=== PATIENT | female | born 1985 | race Caucasian/White ===

== ENCOUNTER 2018-03-13 22:30 | Inpatient (IN) ==
[2018-03-13 23:37] LABS: BASO# 0.02 X1000 (0.0-0.2); BASO% 0.2 % (0.0-0.8); EOS# 0.18 X1000 (0.0-0.7); EOS% 1.5 % (0.0-10.0); HEMATOCRIT 35.1 % (37.0-47.0); HEMOGLOBIN 10.9 g/dL (12.0-16.0); LYMPH# 2.76 X1000 (1.2-3.4); LYMPH% 22.5 % (20.5-51.1); MCH 26.2 PG (27-31); MCHC 31.1 g/dL (33-37); MCV 84.4 FL (81-99); MONO# 0.93 X1000 (0.11-0.59); MONO% 7.6 % (1.7-9.3); MPV 9.7 FL (7.4-10.4); NEUT# 8.37 X1000 (1.4-6.5); NEUT% 68.2 % (42.2-75.2); PLT 555 X1000 (130-400); RBC 4.16 XMIL (4.2-5.4); RDW 15.5 % (11.5-14.5); WBC 12.26 X1000 (4.8-10.8)
[2018-03-13 23:46] LABS: AGAP 18; ALB/GLOB RATIO 0.7; ALBUMIN 3.5 g/dL (3.5-5.0); ALKALINE PHOSPHATASE 103 U/L (32-104); AMYLASE 21 U/L (20-200); BUN 3 mg/dL (8-22); CALCIUM 8.9 mg/dL (8.8-10.2); CHLORIDE 97 mmol/L (98-107); COSMO 274; CREATININE 0.6 mg/dL (0.5-0.9); ESTIMATED GFR > 60; GLUCOSE 105 mg/dL (70-104); GOT 16 U/L (10-30); GPT 7 U/L (10-36); LIPASE 17 U/L (13-60); SODIUM 139 mmol/L (136-145); TCO2 24 mmol/L (25-35); TOTAL BILIRUBIN 0.39 mg/dL (0.20-1.00); TOTAL PROTEIN 8.4 g/dL (6.3-8.3)
[2018-03-13] MEDS ORDERED: KLOR-CON PO ONE (23:58)
[2018-03-13] MEDS ORDERED: MAGNESIUM SULFATE 1 GM/D5W 1 GM/100 ML IVPB IV ONE (23:58)
[2018-03-13] MEDS ORDERED: NS 1,000 ML IV ONE (23:58)
[2018-03-13] MEDS ORDERED: ZOFRAN IV ONE (23:59)
[2018-03-13] MEDS ORDERED: MORPHINE IV ONE (23:59)
[2018-03-14] MEDS ORDERED: ZOSYN 3.375 GM in NS 50 ML IV ONE (02:06)
--- NOTE | 2018-03-14 02:08 | PROVIDER DOCUMENTATION ---
This chart was entered by Ebony Rios Scribe, acting as scribe for Loli Garcia DO. HPI-Abdominal Pain/GI Problem - General Chief Complaint: Abdominal Pain Stated Complaint: CROHN'S DISEASE Time Seen by Provider: 03/13/18 22:53 Source: patient Allergies/Adverse Reactions: Patient Allergies Allergy/AdvReac Type Severity Reaction Status Date / Time Sulfa (Sulfonamide Allergy Severe ANAPHYLAXIS Verified 12/16/17 00:28 Antibiotics) Iodinated Contrast- Oral and Allergy Unknown Unknown Verified 12/16/17 00:28 IV Dye Home Medications: Home Medication List Medication Instructions Recorded Confirmed Last Taken Type Dextroamphetamine/Amphetamine 20 mg PO BID 03/03/17 03/14/18 3 Weeks Ago History [Adderall 20 mg Tablet] ~11/25/17 Calcium Carbonate [Caltrate 600] 600 mg PO BID 30 Days #60 tab 12/21/17 Unknown Rx Cyanocobalamin (Vitamin B-12) 1,000 mcg IJ Q7D 30 Days #4 vial 12/21/1703/11/18 09:00 Rx [Cyanocobalamin Injection] Ergocalciferol (Vitamin D2) 50,000 unit PO Q7D 60 Days #8 cap 12/21/17 03/14/18 03/11/18 09:00 Rx [Vitamin D] Hydrocodone/Acetaminophen [Elliott 1 ea PO Q4-6H PRN PRN 20 Days #40 12/21/1705/01 Unknown Rx 7.5-325 Tablet] tab Iron Carbonyl/Ascorbic Acid 1 ea PO BID 30 Days #60 tab 12/21/17 03/14/18 Unknown Rx [Icar-C] Multivitamins/Minerals [Centrum 1 ea PO HS 30 Days #30 tab 12/21/17 03/14/18 Unknown Rx Silver] Potassium Chloride E.r. [Klor-Con] 40 meq PO BID 30 Days #60 tab 12/21/17 Unknown Rx Sennosides/Docusate Sodium 1 ea PO BID 30 Days #60 tab 12/21/17 03/14/18 Unknown Rx [Pericolace] Folic Acid 1 mg PO DAILY 03/14/18 03/14/18 Unknown History - History of Present Illness-ABD Nature of Presenting Problems: 32yof with hx of crohn's disease c/o RUQ abdominal pain that radiates to RLQ and suprapubic area for one week and fever since yesterday. She denies fever, chills, nausea, vomiting, diarrhea, cp, and sob. Abdominal Pain Onset Location: reports: RUQ Pain Radiation: reports: RLQ, other (suprapubic) Quality of Pain: reports: aching, sharp Severity in ED: reports: mild Onset/Duration: reports: 1 week ago Timing: reports: still present, intermittent Activities at Onset: reports: none Modifying Factors: improves with: nothing Associated Symptoms: denies: chest pain, fever/chills, nausea, shortness of breath, vomiting Similar Symptoms Previously?: No Recently seen or treated by another doctor?: No Review of Systems - Adult - REVIEW OF SYSTEMS - ADULT Constitutional: reports: fever. denies: chills Eyes: denies: discharge, dry eyes Ears, Nose, Mouth & Throat: denies: ear discharge, ear pain Cardiovascular: denies: chest pain, palpitations Respiratory: denies: cough, shortness of breath Gastrointestinal: reports: abdominal pain (RUQ). denies: diarrhea, nausea, vomiting Genitourinary: denies: dysuria, hematuria Musculoskeletal: denies: back pain, muscle aches, muscle weakness Integumentary: reports: no symptoms reported Neurological: denies: dizziness/vertigo, headache/migraines Psychiatric: reports: no symptoms reported Endocrine: reports: no symptoms reported Hematologic/Lymphatic: reports: no symptoms reported Allergic/Immunologic: reports: no symptoms reported All Other Systems: Reviewed and Negative Past History - Adult - PAST MEDICAL HISTORY-ADULT Review of Records: reports: Old Records Reviewed, Nursing Assessment Review, Medications Reviewed Major Childhood Illnesses: reports: denies history Cardiovascular: reports: denies history Respiratory: reports: denies history Gastrointestinal: reports: Crohn's Obstetrical/Gynecological: reports: denies history Genitourinary: reports: denies history Musculoskeletal: reports: denies history Neurological: reports: denies history Endocrine/Immune: reports: denies history Other Conditions: reports: denies history - PRIOR SURGERIES/PROCEDURES Surgical/Procedure History: reports: appendectomy, cholecystectomy, - IMMUNIZATION STATUS Childhood Immunizations: See Nurse Assessment Flu Vaccine: See Nurse Assessment - FAMILY HISTORY Family History: reviewed, not pertinent - SOCIAL HISTORY Smoking: cigarettes, greater than 1 pack/day Substance Use: denies Living Situation: family Physical Exam-General - PHYSICAL EXAM-ADULT Initial Vital Signs Reviewed: Yes - CONSTITUTIONAL General Appearance: alert, no apparent distress - EYES Eyes: PERRL/EOMI, pink conjunctivae - HEAD, EARS, NOSE, MOUTH & THROAT HENMT: normocephalic/atraumatic, moist mucous membranes, normal ENT inspection, pharynx normal - NECK Neck: non-tender, supple - RESPIRATORY Respiratory: chest non-tender, lungs clear, normal breath sounds - CARDIOVASCULAR Cardiovascular: normal peripheral pulses, regular rate, rhythm, no edema, no murmur, tachycardia - GASTROINTESTINAL (ABDOMEN) Abdominal Exam: distended (mild), tenderness (RUQ most intense, RLQ), other ( hypoactive bowel sounds) - LYMPHATIC Lymphatic: no adenopathy - MUSCULOSKELETAL Back Exam: normal inspection, no CVA tenderness, no vertebral tenderness Extremity: normal range of motion, non-tender, normal inspection, no pedal edema - SKIN Integumentary: normal color, warm/dry - NEUROLOGIC Neurologic: grossly normal, no motor/sensory deficits - PSYCHIATRIC Psych/Mental Status: normal mood/affect, normal thought content, normal thought process, oriented x 3 Progress - PLAN OF CARE/RESULTS Progress/Plan/Lab Results: Vital Signs - 8 hr 03/13/18 22:40 Temperature 98.9 F Pulse Rate 102 H Respiratory Rate 18 Blood Pressure 122/77 O2 Sat by Pulse Oximetry 100 Laboratory Results - last 24 hr 03/13/18 03/13/18 03/13/18 23:20 23:20 23:20 WBC 12.26 H RBC 4.16 L Hgb 10.9 L Hct 35.1 L MCV 84.4 MCH 26.2 L MCHC 31.1 L RDW Std Deviation 15.5 H Plt Count 555 H MPV 9.7 Neut % (Auto) 68.2 Lymph % (Auto) 22.5 [place] % (Auto) 7.6 Eos % (Auto) 1.5 Baso % (Auto) 0.2 Neut # (Auto) 8.37 H Lymph # (Auto) 2.76 [facility] [place] # (Auto) 0.93 H Eos # (Auto) 0.18 Baso # (Auto) 0.02 Sodium 139 Potassium 3.0 L Chloride 97 L Carbon Dioxide 24 L Anion Gap 18 BUN 3 L Creatinine 0.6 Estimated GFR/1.73 m2 > 60 BUN/Creatinine Ratio 5 Glucose 105 H Calculated Osmolality 274 Calcium 8.9 Total Bilirubin 0.39 AST 16 ALT 7 L Alkaline Phosphatase 103 C-Reactive Prot, Quant 137.52 H Total Protein 8.4 H Albumin 3.5 Globulin 4.9 Albumin/Globulin Ratio 0.7 Amylase 21 Lipase 17 Urine Source Urine Color Urine Clarity Urine Turbidity Urine pH Ur Specific [place] Urine Protein Ur Glucose (Stick) Urine Ketones Ur Ketones (Stick) Urine Blood Urine Nitrite Urine Bilirubin Urine Urobilinogen Urobilinogen Dipstick Urine Leukocytes Urine WBC (Auto) Urine RBC (Auto) U Epithel Cells (Auto) Urine Bacteria (Auto) Urine WBC Urine Glucose 03/13/18 03/14/18 23:35 23:35 WBC RBC Hgb Hct MCV MCH MCHC RDW Std Deviation Plt Count MPV Neut % (Auto) Lymph % (Auto) [facility] % (Auto) Eos % (Auto) Baso % (Auto) Neut # (Auto) Lymph # (Auto) [facility] # (Auto) Eos # (Auto) Baso # (Auto) Sodium Potassium Chloride Carbon Dioxide Anion Gap BUN Creatinine Estimated GFR/1.73 m2 BUN/Creatinine Ratio Glucose Calculated Osmolality Calcium Total Bilirubin AST ALT Alkaline Phosphatase C-Reactive Prot, Quant Total Protein Albumin Globulin Albumin/Globulin Ratio Amylase Lipase Urine Source Cancelled Urine Color Cancelled YELLOW Urine Clarity CLEAR Urine Turbidity Cancelled Urine pH Cancelled 6.0 Ur Specific [place] Cancelled >= 1.030 Urine Protein Cancelled 30 A Ur Glucose (Stick) Cancelled Urine Ketones TRACE A Ur Ketones (Stick) Cancelled Urine Blood Cancelled NEGATIVE Urine Nitrite Cancelled POSITIVE A Urine Bilirubin Cancelled SMALL A Urine Urobilinogen 0.2 Urobilinogen Dipstick Cancelled Urine Leukocytes Cancelled Urine WBC (Auto) Cancelled Urine RBC (Auto) Cancelled U Epithel Cells (Auto) Cancelled Urine Bacteria (Auto) Cancelled Urine WBC NEGATIVE Urine Glucose NEGATIVE Orders Category Date Time Status Saline Loc DIRECTED Care 03/13/18 22:44 Active NPO Diet 03/13/18 22:[address] ABDOMEN/PELVIS W/O CONTRAST [CT] Stat Exams 03/13/18 23:59 Taken AMYLASE [CHEM] Stat Lab 03/13/18 23:20 Completed BLOOD CULTURE [BLDCUL] Stat Lab 03/14/18 00:21 Uncollected C REACTIVE PROT QUANT [CHEM] Stat Lab 03/14/18 00:06 Completed CBC WITH ELECTRONIC DIFF [HEME] Stat Lab 03/13/18 23:20 Completed COMPREHENSIVE METABOLIC PANEL [CHEM] Stat Lab 03/13/18 23:20 Completed LACTATE, PLASMA [CHEM] Stat Lab 03/14/18 00:21 Uncollected LIPASE [CHEM] Stat Lab 03/13/18 23:20 Completed URINE CULTURE [RM] Routine Lab 03/14/18 00:07 Received 0.9% Sodium Chloride Inj [Ns] 1,000 ml Med 03/13/18 23:58 Discontinued IV 999 mls/hr Magnesium Sulfate 1 gm/D5w Med 03/13/18 23:58 Discontinued 1 gm in 100 ml IV NOW Morphine Med 03/13/18 23:59 Discontinued 4 mg IV NOW ONE Ondansetron [Zofran] Med 03/13/18 23:59 Discontinued 4 mg IV NOW ONE Potassium Chloride E.r. [Klor-Con] Med 03/13/18 23:58 Discontinued 60 meq PO NOW ONE Clinically stable while here. CT reveals a fluid collection in RUQ that may reflect early abscess. There are multiple findings consistent with Crohns flare. Also PSBO vs Ileus. CRP is 135. Given ABX and admitted to hospitalist service Result Diagrams: 03/14/18 02:55 03/14/18 12:20 - CT/MRI 1 CT Study: Abdomen, Pelvis Impression: Abnormal (There are postoperative changes in the right midabdomen which appears to be anastomosis between the large and small bowel. There are inflammaatory changes surrounding the operative site with thickening of the colonic wall and adjacent small bowel wall. There is a new fluid collection between the colon and the liver which may represent a seroma or developing abscess. The small bowel is upper limits of normal in size and demonstrates multiple air-fluid levels. This may represent either a developing obstruction or small bowel ileus. The colon is not distended but also demonstrates multiple air-fluid levels, which could indicate a colonic ileus as well.) Departure - Departure Date of Disposition Decision: 03/14/18 Time of Disposition Decision: 02:00 DIAGNOSIS: Crohn's colitis Qualifiers: Digestive disease complication type: with abscess Qualified Code(s): K50.114 - Crohn's disease of large intestine with abscess Disposition: ADMITTED INPATIENT 09 Certified Medical Emergency: Emergent Condition: Stable - Critical Care Note This patient required my direct & personal management of CC.: No Attestation - Physician/ GERARDO Attestation Patient care was provided by Advanced Practice Provider:: No The physician spent face to face time with patient:: Yes Advanced Practice Provider documentation review:: Supervising physician onsite and consulted in the evaluation and care of this patient. The physician did have a face to face encounter with the patient. This chart was documented by the indicated scribe, (Ebony Rios, Shamir) and accurately reflects the services I performed and decisions made by me, Loli Garcia DO, as attested by the provider's signature.
[2018-03-14] MEDS ORDERED: TYLENOL PO PRN (02:20)
[2018-03-14] MEDS ORDERED: MORPHINE IV ONE (02:23)
[2018-03-14] MEDS ORDERED: SODIUM CHLORIDE 0.9% INJ SCH (02:30)
[2018-03-14 03:01] LABS: BASO# 0.02 X1000 (0.0-0.2); BASO% 0.2 % (0.0-0.8); EOS# 0.16 X1000 (0.0-0.7); EOS% 1.3 % (0.0-10.0); HEMATOCRIT 33.4 % (37.0-47.0); HEMOGLOBIN 10.2 g/dL (12.0-16.0); IMM GRAN# 0.04 X1000 (0.0-0.04); IMM GRAN% 0.3 % (0.0-0.5); LYMPH% 26.2 % (20.5-51.1); MCHC 30.5 g/dL (33-37); MONO# 0.78 X1000 (0.11-0.59); MONO% 6.4 % (1.7-9.3); MPV 9.5 FL (7.4-10.4); NEUT# 8.02 X1000 (1.4-6.5); NEUT% 65.6 % (42.2-75.2); PLT 525 X1000 (130-400); RBC 3.93 XMIL (4.2-5.4); RDW 15.5 % (11.5-14.5); WBC 12.22 X1000 (4.8-10.8)
--- NOTE | 2018-03-14 03:20 | HISTORY AND PHYSICAL ---
CHIEF COMPLAINT: Abdominal pain, nausea, and vomiting. HISTORY OF PRESENT ILLNESS: This is a 32-year-old, female with a past medical history of Crohn's disease diagnosed at the age of 10. Recently discharged for a Crohn's flare on 12/21/2017. Presented to the emergency department with a chief complaint of abdominal pain which has been going on for one and a half weeks, associated with nausea and vomiting. As per the patient, the pain is generalized but mostly located on the right side and periumbilical area. She denies fever or chills. No headache. No chest pain. This patient will be admitted and evaluated by the gastroenterology department. She will be placed on steroids, antibiotics, and IV fluids. We will monitor this patient closely. REVIEW OF SYSTEMS: All the 14 point of review of systems were reviewed. All of them were negative except as per HPI. PAST MEDICAL HISTORY: 1. Crohn's disease. 2. Ileal stricture. 3. History of electrolyte abnormality. 4. History of multiple vitamin deficiencies. 5. Recent small bowel obstruction that required surgery. 6. History of abnormal uterine bleeding, status post endometrial ablation followed by hysterectomy. PAST SURGICAL HISTORY: Cholecystectomy, section, hysterectomy, surgery on 06/27/2017, exploratory laparotomy with ileocecal resection and ileal colostomy due to recurrent Crohn's and stricture. SOCIAL HISTORY: This patient smokes 1 pack a day. No drugs. No alcohol. ALLERGIES: She is allergic to sulfa medicine, IV dye, and iodine. PHYSICAL EXAMINATION: VITAL SIGNS: Temperature 98.9 degrees, pulse 102, respiratory rate 18, blood pressure 122/77, oxygen saturation 100% on room air. HEENT: Head normocephalic. No trauma. PERRLA. NECK: Supple. No JVD. No masses. Central trachea. CHEST: Clear to auscultation. No wheezing. No rales. ABDOMEN: Soft. Generalized tenderness to palpation but mostly at the level of the right side of the abdomen and periumbilical area. Positive bowel sounds but decreased. No signs of peritoneal irritation at this moment. EXTREMITIES: No edema. No clubbing. No cyanosis. NEUROLOGICAL EXAMINATION: The patient is alert and oriented x3. No focal deficits. LABORATORY DATA: WBC 12.2, hemoglobin 10.9, hematocrit 35.1, platelets 555,000. Sodium 139, potassium 3, chloride 97, bicarbonate 24, BUN 3, creatinine 0.6, glucose 105. CRP 137. Albumin 3.5. ASSESSMENT AND PLAN: 1. Crohn's flare. I will place this patient on intravenous fluids with potassium. Also, she will be placed on steroids and antibiotics. Gastroenterology department will be consulted. 2. Hypokalemia. I think she already received a dose of potassium in the emergency department but I will give her also some potassium through her intravenous line. 3. Leukocytosis, likely secondary to her inflammatory condition. At this point, we will continue with the same management. cc: Asael Santos MD
[2018-03-14 03:22] LABS: AGAP 16; ALB/GLOB RATIO 0.7; ALBUMIN 3.1 g/dL (3.5-5.0); ALKALINE PHOSPHATASE 98 U/L (32-104); BUN 3 mg/dL (8-22); CALCIUM 8.2 mg/dL (8.8-10.2); CHLORIDE 99 mmol/L (98-107); COSMO 276; CREATININE 0.5 mg/dL (0.5-0.9); ESTIMATED GFR > 60; GLUCOSE 97 mg/dL (70-104); GOT 10 U/L (10-30); GPT 5 U/L (10-36); MAGNESIUM 2.4 mg/dL (1.5-2.7); POTASSIUM 2.7 mmol/L (3.5-5.1); SODIUM 140 mmol/L (136-145); TCO2 25 mmol/L (25-35); TOTAL BILIRUBIN 0.37 mg/dL (0.20-1.00); TOTAL PROTEIN 7.7 g/dL (6.3-8.3)
[2018-03-14] MEDS: ZOSYN 3.375 GM in NS 50 ML IV SCH ×4 (03:25→20:28)
[2018-03-14] MEDS: PROTONIX IV SCH (03:53)
[2018-03-14] MEDS: SOLU-MEDROL IV SCH ×4 (03:53→20:29)
[2018-03-14] MEDS: POTASSIUM CHLORIDE 40 MEQ in NS 1,000 ML IV SCH ×2 (04:44→18:42)
--- NOTE | 2018-03-14 06:16 | Diag Imaging Result Doc PS360 ---
EXAM: CT ABDOMEN/PELVIS W/O CONTRAST HISTORY: ABD PAIN, HISTORY OF CROHNS. TECHNIQUE: CT abdomen and pelvis without contrast COMPARISON: 12/15/2017 FINDINGS: The gallbladder has been removed. The liver is prominent. No focal hepatic normality identified on this noncontrasted exam. Normal spleen, pancreas, and right adrenal gland. There is a 4.1 cm left adrenal nodule unchanged the prior study. No renal stones or hydronephrosis. Normal aorta. Trace fluid about the tip of the liver. The proximal right colon has been resected. There is inflammation in the right lower quadrant with fluid adjacent to the anastomotic site. There is stool throughout the colon. Small bowel loops in the left abdomen are dilated. The uterus has been removed. Urinary bladder is distended. No pelvic mass. There are sutures in the sigmoid colon. Lower anterior abdominal wall hernias containing fat similar to the prior study. There is a small amount of fluid within these on the current study. IMPRESSION: 1.There is at least a partial small bowel obstruction 2.Inflammation at the anastomotic site of the small bowel and colon in the right lower quadrant with a small amount of adjacent fluid, but no definite abscess. 3.Cholecystectomy 4.Stable left adrenal nodule 5.Prominent liver 6.Hysterectomy 7.Anterior abdominal wall hernias 8.A preliminary report was given at 118 This exam was performed using automated exposure control, adjustment of mA or kV according to patient size, and/or use of iterative reconstruction technique. Electronically signed by Cleveland Cruz 03/14/2018 6:14 AM
[2018-03-14] MEDS: MORPHINE IV PRN ×4 (07:34→20:18)
--- NOTE | 2018-03-14 07:42 | Diag Imaging Result Doc PS360 ---
EXAM: KUB ABDOMEN 03/14/2018 HISTORY: Abdominal pain TECHNIQUE: KUB COMMENT: There is some gas in the transverse and ascending colon. There are multiple loops of distended gas containing small bowel on the left side of the abdomen. This was not the case on 12/18/2017. There is no evidence organomegaly or mass. IMPRESSION: Ileus. Electronically signed by Abner Valle 03/14/2018 7:39 AM
--- NOTE | 2018-03-14 12:25 | PROGRESS NOTE ---
DATE: 03/14/2018 SUBJECTIVE: The patient came in yesterday. She is followed by Dr. Bianca Velasco. Had abdominal pain, nausea, and vomiting. A 32-year-old with past medical history of Crohn disease diagnosed at age 10, was recently discharged after a Crohn's flare on 12/21/2017, presented to the emergency department with chief complaint of abdominal pain, which has been going on for 1-1/2 weeks. She has had generalized pain, but more prominent on the right side of the umbilical area. Denies fever or chills. She has had some low-grade nausea. So was admitted, placed on steroids and antibiotics. REVIEW AGAIN OF PAST MEDICAL HISTORY: 1. Crohn disease. 2. Ileal stricture. 3. History of electrolyte abnormalities. 4. History of multiple vitamin deficiencies. 5. Small bowel obstruction that required surgery in the past. 6. Abdominal uterine bleeding status post endometrial ablation, followed by hysterectomy. PAST SURGICAL HISTORY: 1. Status post cholecystectomy. 2. section. 3. Hysterectomy. 4. Surgery on 06/27/2017 for exploratory laparotomy with ileocecal resection and ileocolostomy due to recurrent Crohn's stricture. Her abdominal and pelvic CT: At least, partial small bowel obstruction, inflammation of anastomotic site, small bowel and colon, the right lower quadrant, with a small amount of adjacent fluid, but no definite abscess. 5. She is status post cholecystectomy. 6. She has a stable left adrenal nodule noted, prominent liver. 7. Status post hysterectomy, and she had some anterior abdominal wall hernias. OBJECTIVE: General: Today, she is still hurting, uncomfortable. She is awake and alert x3. Vital signs: Temperature 98.3, pulse 63, respirations 20, blood pressure 117/62. Eyes: Pupils are equal. Neck: No distended neck veins. Lungs: Clear anterolateral. Cardiovascular: Regular rhythm and rate without murmur or S3. Abdomen: Soft. Skin: Warm and dry. LAB REVIEWED FROM YESTERDAY: White count 12,220, hematocrit is 33, platelet count 525,000. Sodium 140, potassium 2.5, chloride 99, BUN 3, creatinine 0.5. AST 10. ALT was 5. Albumin was 3.1. Urine: Unremarkable. Abdominal x-ray showed ileus. ASSESSMENT AND PLAN: 1. Crohn's flare. Continue intravenous fluids. Supplement potassium. Placed her on steroids and some antibiotics. She is on methylprednisone 40 mg IV q.6. She is on Protonix 40 mg intravenous q.24 hours. She is on Zosyn, and she gets 3.375 gram IV q.6. They gave her 1 gram of magnesium sulfate, and they have given her some potassium. 2. Depression and anxiety. She is on her Pristiq [address] Washington is consulted. Will see how he wants to continue from here. cc: Keagan Hester MD
[2018-03-14 13:14] LABS: AGAP 11; BUN 4 mg/dL (8-22); CALCIUM 8.3 mg/dL (8.8-10.2); CHLORIDE 100 mmol/L (98-107); COSMO 271; CREATININE 0.5 mg/dL (0.5-0.9); ESTIMATED GFR > 60; GLUCOSE 131 mg/dL (70-104); MAGNESIUM 2.5 mg/dL (1.5-2.7); POTASSIUM 3.7 mmol/L (3.5-5.1); SODIUM 136 mmol/L (136-145); TCO2 25 mmol/L (25-35)
[2018-03-14] MEDS: ZOFRAN IV PRN (20:17)
[2018-03-14] MEDS: PRISTIQ ER PO SCH (20:26)
[2018-03-15] MEDS: MORPHINE IV PRN ×6 (01:06→22:52)
[2018-03-15] MEDS: ZOFRAN IV PRN ×6 (01:06→22:52)
[2018-03-15] MEDS: PROTONIX IV SCH (02:57)
[2018-03-15] MEDS: SOLU-MEDROL IV SCH ×4 (02:57→22:57)
[2018-03-15] MEDS: ZOSYN 3.375 GM in NS 50 ML IV SCH ×4 (02:58→22:58)
[2018-03-15 07:40] LABS: AGAP 11; ALB/GLOB RATIO 0.6; ALKALINE PHOSPHATASE 74 U/L (32-104); BUN 6 mg/dL (8-22); CALCIUM 8.9 mg/dL (8.8-10.2); CHLORIDE 104 mmol/L (98-107); COSMO 280; CREATININE 0.6 mg/dL (0.5-0.9); ESTIMATED GFR > 60; GLUCOSE 124 mg/dL (70-104); GOT 9 U/L (10-30); GPT 5 U/L (10-36); POTASSIUM 3.7 mmol/L (3.5-5.1); SODIUM 141 mmol/L (136-145); TCO2 26 mmol/L (25-35); TOTAL BILIRUBIN 0.31 mg/dL (0.20-1.00); TOTAL PROTEIN 7.8 g/dL (6.3-8.3)
[2018-03-15 07:48] LABS: FREE T4 1.25 ng/dL (0.93-1.70); TSH 0.25 uIUmL (0.27-4.20)
[2018-03-15] MEDS: POTASSIUM CHLORIDE 40 MEQ in NS 1,000 ML IV SCH (09:03)
[2018-03-15] MEDS ORDERED: VITAMIN D PO SCH (11:00)
--- NOTE | 2018-03-15 11:12 | CONSULTATION ---
DATE OF CONSULTATION: 03/15/2018 REFERRING PHYSICIAN: Dr. Keagan Hester. PRIMARY CARE PHYSICIAN: Dr. Bianca Velasco. REASON FOR CONSULTATION: Crohn disease. HISTORY OF PRESENT ILLNESS: Ms. Goldberg is a 31-year-old female, who has a history of Crohn disease since age 10. She was recently treated for Crohn flare in December 2017. At that time, she also had blood work in order to seek approval for a biologic agent. In the interim she had another flare up of abdominal pain, nausea and vomiting, and was admitted on 03/13/2018. Imaging on this admission showed at least: 1. Small partial bowel obstruction. 2. Inflammation at the anastomotic site of the small bowel and colon in the right lower quadrant with small amount of adjacent fluid with no definite abscess. 3. Cholecystectomy. 4. Stable left adrenal nodule. 5. Prominent liver. 6. Hysterectomy. 7. Anterior abdominal wall hernias. 8. There is stool throughout the colon. 9. The patient has been treated with IV antibiotics, IV fluids, IV pain control. Gastroenterology is consulted for further management. PAST MEDICAL HISTORY: 1. Crohn disease since age 10. 2. Ileal stricture status post surgery; the last one was done 06/27/2017. 3. History of small bowel obstruction. 4. History of abnormal uterine bleeding, status post endometrial ablation followed by hysterectomy. 5. Constipation. 6. Obesity. PAST SURGICAL HISTORY: 1. Cholecystectomy. 2. . 3. Hysterectomy. 4. Exploratory laparotomy with ileocecal resection on 06/27/2017 due to Crohn disease and stricture by Dr. Benitez. 5. Prior to that, she had hysterectomy with left salpingo-oophorectomy and cystoscopy on 08/11/2015. During that procedure, she was found to have extensive small bowel adhesions to the anterior abdominal wall. 6. Multiple surgery for Crohn disease; the last one done in June 2017. SOCIAL HISTORY: She smokes 1 pack a day. She denies alcohol or illicit drug abuse. ALLERGIES: Sulfa, IV contrast and iodine. FAMILY HISTORY: Remarkable for Crohn disease in her father. REVIEW OF SYSTEMS: Denies any fevers, rigors, or chills. Denies any chest pain, shortness of breath. Does complain of abdominal pain. Denies any diarrhea. She had 2 bowel movements yesterday. No blood in the stools. Denies any vomiting today. Denies any vomiting blood. Denies any blood in the stools. Does complain of some dark stools at times. Denies any neurological complaints. Denies any blood in the urine. MEDICATIONS IN THE HOSPITAL: Tylenol, desvenlafaxine, methylprednisolone 40 mg IV q. 6 hours, morphine 4 mg IV every 4 hours, normal saline 75, Protonix IV once daily, Zosyn IV q. 6 hours.. She is currently n.p.o. PHYSICAL EXAMINATION: Vital signs: Temperature of 97.8 degrees, pulse rate of 47, respiratory 20, blood pressure 99/48, satting 95% on room air. Body weight of 247 pounds. BMI of 35.4 kg/m2. General appearance: Obese, lying in bed, in mild distress with abdominal pain. HEENT: Mild pallor. No icterus. Pupils equal, reactive to light. Neck: Supple. Abdomen: There is discomfort in the periumbilical region. No guarding. No rebound. Extremities: No cyanosis, clubbing. Neurologic: She is alert, awake, oriented. LABS: Hemoglobin and hematocrit is 10.2 and 33.4, white count of 12.2, platelet count of 525. Sodium 141, potassium 3.7, chloride 104, bicarbonate 26, anion gap 11. BUN of 6, creatinine 0.6, glucose of 124, calcium is 8.9, magnesium 2.5. Total bilirubin is 0.81, AST 9, ALT 5, alkaline phosphatase 74, total protein 7.8, albumin of 3. TSH 0.25. Amylase of 21, lipase of 17. MICROBIOLOGY: Blood culture x2 was drawn yesterday; they are currently pending. Urine culture showed mixed pedro. IMAGING: CT scan findings shown on HPI. IMPRESSION AND PLAN: 1. Crohn disease flare. She will continue on intravenous fluids, intravenous steroids and intravenous antibiotics. We will continue to work on seeking outpatient approval for Humira. 2. Constipation as evidenced of stool throughout the colon on the CT scan. In this regard, we will start her on MiraLAX and Dulcolax. 3. Depression and anxiety. She is on Pristiq 50 mg at bedtime. 4. Gastrointestinal prophylaxis with proton pump inhibitors. 5. Anemia. We will start her on Iron C twice daily and multivitamins once daily. The patient will follow up in the clinic in 2 weeks of discharge. We will follow along. The above plan discussed with the patient and all questions answered. cc: MD Bianca De La Garza MD
--- NOTE | 2018-03-15 13:35 | PROGRESS NOTE ---
DATE: 03/15/2018 SUBJECTIVE: Mrs. Goldberg is sleeping. She denied any pain at the present time. She is only in pain when she moves around. OBJECTIVE: Vital Signs: Temperature 97.8, pulse at 47, respirations 20, blood pressure 99/48. eyes: Pupils are equal and round. Lungs: Clear in all lung hanks. Cardiovascular: Regular rhythm and rate without murmur or S3. Abdomen: Soft, nontender. Skin: Warm and dry. : Urine output is 3100 mL. ASSESSMENT AND PLAN: 1. Crohn disease flare. Continue IV fluids. IV steroids. IV antibiotics. Trying to seek outpatient approval for Humira. Dr. Washington following. 2. Constipation. Advanced evidence of stool throughout the colon on CT scan. Started on MiraLAX and Dulcolax. 3. Depression and anxiety. She is on Pristiq 50 mg a day. 4. Getting GI prophylaxis proton pump inhibitor. 5. Anemia on iron C twice a day. Multivitamin once a day. She would like to have her medications started back again. Her home medications. I think herbs and supplement, so we will see if we can do that. She is getting morphine IV p.r.n. cc: Keagan Hester MD
[2018-03-15] MEDS ORDERED: CYANOCOBALAMIN IM SCH (14:00)
[2018-03-15] MEDS: MIRALAX PO SCH ×2 (14:05→22:57)
[2018-03-15 18:21] LABS: URINE SOURCE CLEAN CATCH
[2018-03-15 18:24] LABS: BILIRUBIN URINE NEGATIVE (NEGATIVE); BLOOD URINE NEGATIVE (NEGATIVE); COLOR YELLOW; GLUCOSE URINE NEGATIVE (NEGATIVE); KETONE URINE TRACE mg/dL (NEGATIVE); LEUKOCYTES URINE NEGATIVE (NEGATIVE); NITRITE URINE NEGATIVE (NEGATIVE); PROTEIN URINE TRACE mg/dL (NEGATIVE); SP GRAVITY URINE 1.019; TURBIDITY URINE CLEAR (CLEAR); UROBILINOGEN URINE NORMAL (NORMAL)
[2018-03-15 18:36] LABS: UR EPITHELIAL CELLS <10 /HPF (<10); URINE BACTERIA NEGATIVE /HPF; URINE WBC <10 /HPF (<10)
[2018-03-15 18:57] LABS: URINE CASTS NONE SEEN; URINE CRYSTALS NONE SEEN; URINE YEAST PRESENT
[2018-03-15] MEDS: PERICOLACE PO SCH (22:56)
[2018-03-15] MEDS: PRISTIQ ER PO SCH (22:57)
[2018-03-15] MEDS: ICAR-C PO SCH (22:57)
[2018-03-15] MEDS: DULCOLAX PR SCH (22:57)
[2018-03-15] MEDS: CALTRATE 600 PO SCH (23:08)
[2018-03-16] MEDS: SOLU-MEDROL IV SCH ×4 (04:25→21:57)
[2018-03-16] MEDS: ZOSYN 3.375 GM in NS 50 ML IV SCH ×4 (04:25→21:57)
[2018-03-16] MEDS: PROTONIX IV SCH (04:25)
[2018-03-16] MEDS: MORPHINE IV PRN ×5 (06:59→22:39)
[2018-03-16] MEDS: ZOFRAN IV PRN ×5 (07:00→22:39)
[2018-03-16] MEDS: FOLIC ACID PO SCH (08:37)
[2018-03-16] MEDS: PERICOLACE PO SCH ×2 (08:37→21:57)
[2018-03-16] MEDS: ICAR-C PO SCH ×2 (08:37→21:57)
[2018-03-16] MEDS: CENTRUM SILVER PO SCH (08:37)
[2018-03-16] MEDS: MIRALAX PO SCH ×2 (08:37→21:57)
[2018-03-16] MEDS: CALTRATE 600 PO SCH ×2 (08:37→21:57)
[2018-03-16] MEDS: ENTOCORT EC PO SCH (08:38)
[2018-03-16] MEDS: POTASSIUM CHLORIDE 40 MEQ in NS 1,000 ML IV SCH ×4 (09:33→22:45)
--- NOTE | 2018-03-16 15:59 | PROGRESS NOTE ---
DATE: 03/16/2018 SUBJECTIVE: Ms. Goldberg was sleeping, resting comfortably. She said she does feel a little better today, still a lot of abdominal cramping. She would like to advance her diet to GI soft. OBJECTIVE: Vital Signs: Temperature 97.7 degrees, pulse 41, respirations 16, blood pressure 107/68. Urine output is 1600 mL. HEENT: Pupils are equal and round. Lungs: Clear in all lung hanks. Cardiovascular: Regular rate without murmur or S3. Abdomen: Soft. Skin: Warm and dry. ASSESSMENT AND PLAN: 1. Crohn disease. Continue present regimen of intravenous steroids, antibiotics, and fluids. Dr. Washington is going to see if she is a candidate for Humira treatment. 2. Constipation. Evidence of stool throughout her CT, so she is getting MiraLAX and Dulcolax. 3. Depression and anxiety. 4. Continue gastrointestinal prophylaxis and on review of orders, I do not see any change. cc: Keagan Hester MD
[2018-03-16] MEDS: DULCOLAX PR SCH (21:57)
[2018-03-16] MEDS: PRISTIQ ER PO SCH ×2 (21:57→22:01)
[2018-03-17] MEDS: SOLU-MEDROL IV SCH ×4 (03:53→22:23)
[2018-03-17] MEDS: PROTONIX IV SCH (03:53)
[2018-03-17] MEDS: ZOFRAN IV PRN ×4 (03:53→22:29)
[2018-03-17] MEDS: ZOSYN 3.375 GM in NS 50 ML IV SCH ×4 (03:53→22:27)
[2018-03-17] MEDS: MORPHINE IV PRN ×5 (03:53→22:23)
[2018-03-17] MEDS: FOLIC ACID PO SCH (09:51)
[2018-03-17] MEDS: CENTRUM SILVER PO SCH (09:51)
[2018-03-17] MEDS: PERICOLACE PO SCH ×2 (09:51→22:23)
[2018-03-17] MEDS: CALTRATE 600 PO SCH ×2 (09:51→22:23)
[2018-03-17] MEDS: ICAR-C PO SCH ×2 (09:51→22:24)
[2018-03-17] MEDS: MIRALAX PO SCH ×2 (09:52→22:25)
[2018-03-17] MEDS: ENTOCORT EC PO SCH (09:52)
--- NOTE | 2018-03-17 10:27 | PROGRESS NOTE ---
DATE: 03/17/2018 SUBJECTIVE: Ms. Goldberg was sleeping, was easy to arouse. She says she feels a little bit better. She did try and eat a little bit yesterday and had a little nausea after eating. She has not eaten her breakfast yet this morning. OBJECTIVE: Temperature 97.9, pulse 50, respirations 16, blood pressure 150/76. Pupils are equal and round. Lungs are clear in all lung hanks. Cardiovascular: Regular rhythm and rate without murmur or S3. Abdomen is soft. Skin is warm and dry. Urine output looks good at 5 L. ASSESSMENT AND PLAN: 1. Acute Crohn's flare. Seems to be doing a little better. Continue steroids, antibiotics, and fluids. Dr. Washington is trying to see if she would be a candidate for Humira treatment. 2. Constipation. Still has not had a bowel movement. She does not want to try anything else. She is on MiraLAX and Dulcolax. 3. Depression and anxiety. 4. Continue her GI prophylaxis. REVIEW OF CURRENT MEDICATIONS: 1. Dulcolax 10 mg per rectum at bedtime. 2. Budesonide ER 9 mg daily. 3. Calcium carbonate 600 mg b.i.d. 4. Cyanocobalamin 1000 mg IM q. Week. She is on Pristiq ER, 50 mg a day. 5. Vitamin D 50,000 units q. week. 6. Folic acid 1 a day. 7. Iron carbonyl 1 b.i.d. 8. Methylprednisone 40 mg IV q.6. 9. Multivitamin 1 a day. 10. Normal saline at 75 mL an hour. 11. Polyethylene glycol 17 g b.i.d. cc: Keagan Hester MD
[2018-03-17] MEDS: POTASSIUM CHLORIDE 40 MEQ in NS 1,000 ML IV SCH (14:08)
[2018-03-18] MEDS: POTASSIUM CHLORIDE 40 MEQ in NS 1,000 ML IV SCH (02:29)
[2018-03-18] MEDS: ZOFRAN IV PRN ×4 (02:30→14:32)
[2018-03-18] MEDS: MORPHINE IV PRN ×4 (02:30→14:32)
[2018-03-18] MEDS: SOLU-MEDROL IV SCH ×2 (02:40→09:21)
[2018-03-18] MEDS: ZOSYN 3.375 GM in NS 50 ML IV SCH ×2 (03:48→10:37)
[2018-03-18] MEDS ORDERED: CYANOCOBALAMIN IM SCH (09:00)
[2018-03-18] MEDS: MIRALAX PO SCH (09:17)
[2018-03-18] MEDS: ENTOCORT EC PO SCH (09:25)
[2018-03-18] MEDS: PERICOLACE PO SCH (09:25)
[2018-03-18] MEDS: CALTRATE 600 PO SCH (09:26)
[2018-03-18] MEDS: ICAR-C PO SCH (09:26)
[2018-03-18] MEDS: FOLIC ACID PO SCH (09:26)
[2018-03-18] MEDS: CENTRUM SILVER PO SCH (09:26)
[2018-03-18] MEDS ORDERED: VITAMIN D PO SCH (11:00)
--- NOTE | 2018-03-18 13:17 | DISCHARGE SUMMARY ---
ADMISSION DATE: 03/13/2018 DISCHARGE DATE: 03/18/2018 PRIMARY CARE PHYSICIAN: Dr. Bianca Velasco. HISTORY: This is a 32-year-old female with a past medical history of Crohn disease diagnosed at age 10, recently discharged with a Crohn flare on 12/21/2017, presented to the emergency room on 03/13/2018 with a chief complaint abdominal pain that had been going on for about one and a half weeks, associated with nausea and vomiting. As per patient, the pain seems to be generalized but mostly prominent in the right side and periumbilical area. She denies any fever or chills. No headache. No chest pain. So, was admitted with what appears to be a Crohn flare. PAST MEDICAL HISTORY: 1. Crohn disease. 2. Ileal stricture. 3. History of electrolyte abnormalities in the past. 4. History of multiple vitamin deficiencies. 5. Small bowel obstruction, required surgery. 6. History of abnormal uterine bleeding, status post endometrial ablation, followed by hysterectomy. PAST SURGICAL HISTORY: 1. Cholecystectomy. 2. section. 3. Hysterectomy. 4. Surgery on 06/27/2017, exploratory laparotomy with ileocecal resection and ileal colostomy due to recurrent Crohn stricture. ALLERGIES: She is allergic to sulfa medications, IV dye, and iodine. HOSPITAL COURSE: Was admitted and put on some empiric antibiotics and some steroids. She has shown some steady improvement. We supplemented her potassium. She had a CT of the abdomen and pelvis on admission. There was at least partial small bowel obstruction, inflammation of the anastomotic site of the small bowel and colon in the right lower quadrant. Small amount of adjacent fluid but no definite abscess. Status post cholecystectomy. Stable left adrenal nodule. Prominent liver. Hysterectomy. Anterior abdominal wall hernias. Abdominal x-ray suggested ileus. Bowels started moving a little better. We advanced her diet and she really wanted go home on 03/18/2018. We will discharge her home and put her back on her home medications. DISCHARGE MEDICATIONS: She is on multivitamins. Will give her some prednisone. She is on her budesonide which is Anticort EC 9 mg daily. I may give her some Flagyl to take 500 mg twice a day for another 10 days. FOLLOW UP: Follow up with Dr. Washington. I think they are trying to pursue trying to treat with Humira. cc: Keagan Hester MD
[2018-03-18 13:19] VITALS: BP 160/81
== END 2018-03-18 14:38 | disposition home or self-care (01) | DRG 387 ==
LOC: ED 22:30 → 4N 03-14 01:00 → SUATTDRO 03-14 03:49
PROVIDERS: ATTEND Emergency Medicine
CPT/HCPCS: 74000; 74018; 74176; 80048; 80053; 81001; 82150; 82607; 82746; 83605; 83690; 83735; 84439; 84443; 85025; 86140; 87040; 87088; 96361; 96365; 96366; 96368; 96375; 99285; A9270; C9113; J2270; J2405; J2543; J2920; J3420; J3475; J3480; J7030; S0164

== ENCOUNTER 2019-03-18 20:04 | Inpatient (IN) ==
[2019-03-18 20:41] LABS: BASO# 0.02 X1000 (0.0-0.2); BASO% 0.2 % (0.0-0.8); EOS# 0.57 X1000 (0.0-0.7); EOS% 5.6 % (0.0-10.0); HEMATOCRIT 40.3 % (37.0-47.0); HEMOGLOBIN 13.4 g/dL (12.0-16.0); LYMPH# 2.17 X1000 (1.2-3.4); LYMPH% 21.5 % (20.5-51.1); MCH 28.1 PG (27-31); MCHC 33.3 g/dL (33-37); MCV 84.5 FL (81-99); MONO# 0.94 X1000 (0.11-0.59); MONO% 9.3 % (1.7-9.3); MPV 10.5 FL (7.4-10.4); NEUT% 63.4 % (42.2-75.2); PLT 375 X1000 (130-400); RBC 4.77 XMIL (4.2-5.4); RDW 14.7 % (11.5-14.5)
--- NOTE | 2019-03-18 21:13 | PROVIDER DOCUMENTATION ---
This chart was entered by Yolanda Wilks Scribe, acting as scribe for Emery Dominguez MD. HPI-General Adult - General Chief Complaint: Abdominal Pain Stated Complaint: CROHNS SX/FLU SX Time Seen by Provider: 03/18/19 21:03 Source: patient Allergies/Adverse Reactions: Patient Allergies Allergy/AdvReac Type Severity Reaction Status Date / Time Sulfa (Sulfonamide Allergy Severe ANAPHYLAXIS Verified 12/16/17 00:28 Antibiotics) Iodinated Contrast Media Allergy Unknown Unknown Verified 12/16/17 00:28 Home Medications: Home Medication List Medication Instructions Recorded Confirmed Last Taken Type Dextroamphetamine/Amphetamine 20 mg PO BID 03/03/17 03/14/18 3 Weeks Ago History [Adderall 20 mg Tablet] ~11/25/17 Calcium Carbonate [Caltrate 600] 600 mg PO BID 30 Days #60 tab 12/21/17 03/14/18 Unknown Rx Cyanocobalamin (Vitamin B-12) 1,000 mcg IJ Q7D 30 Days #4 vial 12/21/17 03/14/18 03/11/18 09:00 Rx [Cyanocobalamin Injection] Ergocalciferol (Vitamin D2) 50,000 unit PO Q7D 60 Days #8 cap 12/21/17 03/14/18 03/11/18 09:00 Rx [Vitamin D] Hydrocodone/Acetaminophen [[place] 1 ea PO Q4-6H PRN PRN 20 Days #40 12/21/17 03/14/18 Unknown Rx 7.5-325 Tablet] tab Iron Carbonyl/Ascorbic Acid 1 ea PO BID 30 Days #60 tab 12/21/17 03/14/18 Unknown Rx [Icar-C] Multivitamins/Minerals [Centrum 1 ea PO HS 30 Days #30 tab 12/21/17 03/14/18 Unknown Rx Silver] Potassium Chloride E.r. [Klor-Con] 40 meq PO BID 30 Days #60 tab 12/21/17 03/14/18 Unknown Rx Sennosides/Docusate Sodium 1 ea PO BID 30 Days #60 tab 12/21/17 03/14/18 Unknown Rx [Pericolace] Folic Acid 1 mg PO DAILY 03/14/18 03/14/18 Unknown History Budesonide E.r. [Entocort EC] 9 mg PO DAILY 30 Days #30 cap 03/18/18 Unknown Rx Desvenlafaxine E.r. [Pristiq ER] 50 mg PO HS tablet 03/18/18 Unknown Rx Hydrocodone/APAP 10 mg/325 mg 1 each PO Q6H PRN PRN 10 Days #20 03/18/18 Unknown Rx [[place]-10] tablet Iron Carbonyl/Ascorbic Acid 1 ea PO BID 30 Days #60 tab 03/18/18 Unknown Rx [Icar-C] Metronidazole [Flagyl] 500 mg PO BID 14 Days #28 tab 03/18/18 Unknown Rx Multivitamins/Minerals [Centrum 1 each PO DAILY tablet 03/18/18 Unknown Rx Silver] Ondansetron [Zofran] 4 mg PO Q6H PRN PRN 20 Days #40 03/18/18 Unknown Rx tablet Polyethylene Glycol 3350 [Miralax] 17 gm PO BID 30 Days #1 powder, 03/18/18 Unknown Rx packet Prednisone 20 mg PO DAILY 5 Days #10 tablet 03/18/18 Unknown Rx - History of Present Illness -Gen Adult Nature of Presenting Problems: pt is a 33 yowf c/o bilat leg aching and cramping, nausea, abd pain right sided, poor appetite, cough, pleurisy and "hurts to talk," and numb lips and fingertips. pt started getting URI symptoms on 03-13, had fever up until today. pt had flu shot. pt has hx of crohns dz managed by at [facility], and vitamin deficiency. smoker 1/2 ppd, no alcohol or drug use. allergy to sulfa and iv contrast. Location of Pain/Injury: reports: lower extremity Pain Radiation: reports: no radiation Quality of Pain: reports: aching Severity: reports: mild Onset/Duration: reports: 1 week ago Timing: reports: still present Context/Activities at Onset: reports: none Modifying Factors: improves with: nothing Review of Systems - Adult - REVIEW OF SYSTEMS - ADULT Constitutional: reports: see HPI. denies: fever (resolved today), fatique, night sweats Eyes: reports: no symptoms reported Ears, Nose, Mouth & Throat: reports: no symptoms reported Cardiovascular: reports: no symptoms reported Respiratory: reports: see HPI, cough, pleurisy. denies: shortness of breath, wheezing Gastrointestinal: reports: see HPI, abdominal pain (rt sided), nausea, poor appetite. denies: constipation, difficulty swallowing, frequent heartburn Genitourinary: reports: no symptoms reported Musculoskeletal: reports: see HPI, muscle aches (bilat legs and cramping) Integumentary: reports: no symptoms reported Neurological: reports: see HPI, numbness (lips and bilat fingertips). denies: dizziness/vertigo, headache/migraines, slurred speech Psychiatric: reports: no symptoms reported Endocrine: reports: no symptoms reported Hematologic/Lymphatic: reports: no symptoms reported Allergic/Immunologic: reports: no symptoms reported All Other Systems: Reviewed and Negative Past History - Adult - PAST MEDICAL HISTORY-ADULT Review of Records: reports: Nursing Assessment Review, Medications Reviewed, Social history reviewed & non-contributory. Major Childhood Illnesses: reports: denies history Cardiovascular: reports: denies history Respiratory: reports: denies history Gastrointestinal: reports: Crohn's Obstetrical/Gynecological: reports: denies history Genitourinary: reports: denies history Musculoskeletal: reports: denies history Neurological: reports: denies history Endocrine/Immune: reports: denies history Other Conditions: reports: denies history - PRIOR SURGERIES/PROCEDURES Surgical/Procedure History: reports: appendectomy, cholecystectomy, - IMMUNIZATION STATUS Childhood Immunizations: See Nurse Assessment Flu Vaccine: See Nurse Assessment - FAMILY HISTORY Family History: reviewed, not pertinent - SOCIAL HISTORY Smoking: cigarettes, less than 1 pack/day Provider spent 3-5 mins advising pt. on dangers of tobacco.: Discussed manners to quit use, and f/u contacts for add'l counseling. Substance Use: none/never Physical Exam-General - PHYSICAL EXAM-ADULT Initial Vital Signs Reviewed: Yes - CONSTITUTIONAL General Appearance: appears well, alert, no apparent distress - EYES Eyes: PERRL/EOMI, pink conjunctivae - HEAD, EARS, NOSE, MOUTH & THROAT HENMT: normocephalic/atraumatic, moist mucous membranes, normal ENT inspection - NECK Neck: non-tender, full range of motion, supple, normal inspection - RESPIRATORY Respiratory: chest non-tender, lungs clear, normal breath sounds, no pleuratic chest pain, no respiratory distress, no accessory muscle use. negative: crackles, rales, rhonchi - CARDIOVASCULAR Cardiovascular: normal peripheral pulses, regular rate, rhythm - GASTROINTESTINAL (ABDOMEN) Abdominal Exam: normal bowel sounds, non tender, soft, no organomegaly, no pulsatile mass, tenderness (mild rlq on palp). negative: distended, guarding, rigid - MUSCULOSKELETAL Back Exam: normal inspection Extremity: normal range of motion, non-tender, normal gait, normal inspection, no pedal edema, no calf tenderness, normal capillary refill, pelvis stable. negative: calf tenderness, slow capillary refill, swelling - SKIN Integumentary: normal color, normal turgor, warm/dry - NEUROLOGIC Neurologic: mission planner II-XII nml as tested, grossly normal, no motor/sensory deficits - PSYCHIATRIC Psych/Mental Status: normal mood/affect, normal thought content, normal thought process, oriented x 3 Progress - PLAN OF CARE/RESULTS Progress/Plan/Lab Results: Vital Signs - 8 hr 03/18/19 20:09 Temperature 98.8 F Pulse Rate 91 H Respiratory Rate 21 Blood Pressure 108/73 O2 Sat by Pulse Oximetry 97 03/18/19 20:20 Influenza Screen - Final Nasopharyngeal Laboratory Results - last 24 hr 03/18/19 20:20 WBC 10.10 RBC 4.77 Hgb 13.4 Hct 40.3 MCV 84.5 MCH 28.1 MCHC 33.3 RDW Std Deviation 14.7 H Plt Count 375 MPV 10.5 H Neut % (Auto) 63.4 Lymph % (Auto) 21.5 [place] % (Auto) 9.3 Eos % (Auto) 5.6 Baso % (Auto) 0.2 Neut # (Auto) 6.40 Lymph # (Auto) 2.17 [place] # (Auto) 0.94 H Eos # (Auto) 0.57 Baso # (Auto) 0.02 Orders Category Date Time Status Saline Loc DIRECTED Care 03/18/19 20:20 Active NPO Diet 03/18/19 20:20 Active AMYLASE [CHEM] Stat Lab 03/18/19 20:20 Received CBC WITH ELECTRONIC DIFF [HEME] Stat Lab 03/18/19 20:20 Completed COMPREHENSIVE METABOLIC PANEL [CHEM] Stat Lab 03/18/19 20:20 Received Flu Swab [INFLUENZA SCREEN A/B] Stat Lab 03/18/19 20:20 Completed LIPASE [CHEM] Stat Lab 03/18/19 20:20 Received URINALYSIS W/POSS RFLX CULT [URINALYSIS] Stat Lab 03/18/19 20:41 Ordered Result Diagrams: 03/18/19 20:20 03/18/19 20:20 - CONSULTS/PCP/HOSPITALIST Notification #1 *Consult/PCP/Hospitalist*: Dr. Costello hospitalist Time Discussed: 22:30 Consult Disposition: Admit Departure - Departure Date of Disposition Decision: 03/18/19 Time of Disposition Decision: 22:31 DIAGNOSIS: Hypokalemia UTI (urinary tract infection) Qualifiers: Urinary tract infection type: site unspecified Hematuria presence: without hematuria Qualified Code(s): N39.0 - Urinary tract infection, site not specified LLL pneumonia Qualifiers: Pneumonia type: due to unspecified organism Qualified Code(s): J18.1 - Lobar pneumonia, unspecified organism Disposition: ADMITTED INPATIENT 09 Certified Medical Emergency: Emergent Condition: Stable Referrals and Follow-Ups: Yuridia Duenas CRNP [Primary Care Provider] - - Critical Care Note This patient required my direct & personal management of CC.: No Attestation - Physician/ GERARDO Attestation Patient care was provided by Advanced Practice Provider:: No The physician spent face to face time with patient:: Yes Advanced Practice Provider documentation review:: Supervising physician onsite and consulted in the evaluation and care of this patient. The physician did have a face to face encounter with the patient. This chart was documented by the indicated scribe, (Yolanda Wilks Scribe) and accurately reflects the services I performed and decisions made by me, Emery Dominguez MD, as attested by the provider's signature.
[2019-03-18 21:15] LABS: AGAP 20; ALB/GLOB RATIO 0.8; ALBUMIN 3.6 g/dL (3.5-5.0); ALKALINE PHOSPHATASE 74 U/L (32-104); AMYLASE 21 U/L (20-200); BUN 2 mg/dL (8-22); CALCIUM 8.7 mg/dL (8.8-10.2); CHLORIDE 82 mmol/L (98-107); COSMO 258; CREATININE 0.8 mg/dL (0.5-0.9); ESTIMATED GFR > 60; GLUCOSE 120 mg/dL (70-104); GOT 12 U/L (10-30); GPT < 5 U/L (10-36); LIPASE 11 U/L (13-60); POTASSIUM 2.1 mmol/L (3.5-5.1); SODIUM 130 mmol/L (136-145); TCO2 28 mmol/L (25-35); TOTAL BILIRUBIN 0.52 mg/dL (0.20-1.00); TOTAL PROTEIN 8.1 g/dL (6.3-8.3)
[2019-03-18] MEDS ORDERED: ZOFRAN IV ONE (21:15)
--- NOTE | 2019-03-18 21:45 | Diag Imaging Result Doc PS360 ---
EXAM: CT ABDOMEN/PELVIS W/O CONTRAST - 03/18/2019 HISTORY: nausea, vomiting TECHNIQUE: CT abdomen/pelvis without contrast. No contrast administered per request of the referring provider. COMPARISON: 03/14/2018 FINDINGS: There is some limitation of detail without administered contrast. There is ill-defined infiltrate with fine nodularity at the visualized left lower lobe lung. This is suspicious for bronchopneumonia. There is mild hepatosplenomegaly. There is no focal liver or splenic lesion identified. There are artifacts from motion which limit detail at the adrenal glands and upper kidneys. There are no abnormalities of the pancreas identified. The gallbladder surgically absent. There is no renal stone or hydronephrosis identified. There are nonspecific small mesenteric lymph nodes. There is a broad-based midline lower anterior abdominal wall hernia which contains mid transverse colon. There are no complicating features. There are postsurgical changes at the right lower quadrant. There are apparent inflammatory changes at the right lower quadrant in the vicinity of the surgical site, which may relate to Crohn's enterocolitis. There is no evidence of bowel obstruction. There is no abscess identified. There is no free air or substantial free fluid identified. There is been prior hysterectomy. There is no abnormal pelvic mass or fluid collection identified. IMPRESSION: Bronchopneumonia at left lower lobe. Mild hepatosplenomegaly. Apparent inflammatory changes at right lower quadrant in the vicinity of prior surgery. These may relate to Crohn's enterocolitis. No bowel obstruction. No abscess. No free air. This exam was performed using automated exposure control, adjustment of mA or kV according to patient size, and/or use of iterative reconstruction technique. Electronically signed by Dm Rucker 03/18/2019 9:43 PM
[2019-03-18] MEDS ORDERED: POTASSIUM CHLORIDE 40 MEQ/SWI 40 MEQ/100 ML IVPB IV ONE (21:48)
[2019-03-18] MEDS ORDERED: NS 1,000 ML IV ONE (21:49)
[2019-03-18 22:14] LABS: URINE SOURCE CLEAN CATCH
[2019-03-18] MEDS ORDERED: MORPHINE IV ONE (22:15)
[2019-03-18 22:21] LABS: BILIRUBIN URINE NEGATIVE (NEGATIVE); BLOOD URINE NEGATIVE (NEGATIVE); COLOR YELLOW; GLUCOSE URINE NEGATIVE (NEGATIVE); KETONE URINE NEGATIVE (NEGATIVE); LEUKOCYTES URINE NEGATIVE (NEGATIVE); NITRITE URINE NEGATIVE (NEGATIVE); PH URINE 6.5; PROTEIN URINE TRACE mg/dL (NEGATIVE); SP GRAVITY URINE 1.008; TURBIDITY URINE CLEAR (CLEAR); UR EPITHELIAL CELLS <10 /HPF (<10); URINE BACTERIA NEGATIVE /HPF; URINE RBC <10 /HPF (<10); UROBILINOGEN URINE NORMAL (NORMAL)
[2019-03-18] MEDS ORDERED: ROCEPHIN 1 GM in NS 50 ML IV ONE (22:21)
[2019-03-18] MEDS ORDERED: ZITHROMAX 500 MG/NS 500 MG/250 ML IVPB IV ONE (22:24)
[2019-03-18] MEDS ORDERED: SOLU-MEDROL IV ONE (22:55)
[2019-03-18] MEDS ORDERED: DUONEB (A & A) INH ONE (22:55)
[2019-03-18] MEDS ORDERED: TYLENOL PO ONE (22:56)
[2019-03-18] MEDS: POTASSIUM CHLORIDE 20 MEQ/SWI 20 MEQ/100 ML IVPB IV SCH (23:01)
[2019-03-18] MEDS ORDERED: DUONEB (A & A) INH SCH (23:44)
[2019-03-18] MEDS: MUCINEX PO SCH (23:44)
[2019-03-18] MEDS ORDERED: TYLENOL PO PRN (23:44)
--- NOTE | 2019-03-19 00:08 | EKG Report ---
Test Performed on : 03/18/2019 9:43:48 PM Test Reason : crohns s/s Blood Pressure : / mmHG Vent. Rate : 082 BPM Atrial Rate : 082 BPM P-R Int : 146 ms QRS Dur : 100 ms QT Int : 490 ms P-R-T Axes : 036 044 037 degrees QTc Int : 572 ms Normal sinus rhythm. Possible Left atrial enlargement Nonspecific ST abnormality Prolonged QT Abnormal ECG When compared with ECG of 17-NOV-2017 11:50, QT has lengthened Unconfirmed Result
[2019-03-19] MEDS: FLAGYL 500 MG/NS 500 MG/100 ML IVPB IV SCH ×4 (00:54→18:39)
[2019-03-19] MEDS: LOVENOX SUBQ SCH (00:57)
[2019-03-19] MEDS: POTASSIUM CHLORIDE 20 MEQ/SWI 20 MEQ/100 ML IVPB IV SCH ×4 (01:05→21:29)
[2019-03-19] MEDS: ZOFRAN IV PRN ×3 (01:24→18:39)
[2019-03-19] MEDS: MORPHINE IV PRN ×6 (01:25→21:44)
--- NOTE | 2019-03-19 01:51 | HISTORY AND PHYSICAL ---
REASON FOR ADMISSION: Four-day history of nausea, vomiting, diarrhea, and cough with fever. PRIMARY CARE PROVIDER: JONNIE Pressley, in [place]. HISTORY OF PRESENT ILLNESS: Ms. China Goldberg is a 33-year-old white woman with a past medical history of Crohn disease, who reports that 5 days ago she went out with her family to eat at a [place] restaurant and the next morning she awoken to having a burning pressure- like chest pain coupled with intense nausea and then subsequent vomiting and diarrhea. She denies any hematemesis, coffee-ground, melenic stools or hematochezia. She has a longstanding history of right lower quadrant abdominal pain which she states has gotten worse since she developed a mildly productive cough the following day. The cough is productive of greenish sputum, and she says she has been having intermittent fever and chills. She admits to having progressive shortness of breath with exertion. No PND, orthopnea. No leg swelling or extremity redness or pain. She states that the aforementioned chest pain is worse when she coughs, and describes the pain as being several razor blades in her chest. She also states that her vomiting is usually postprandial and her diarrhea is not affected by meals. No genitourinary complaints. No neurological complaints. No rash or new onset arthralgia. Denies any close contact with anybody with respiratory or GI symptoms. No change in her home medications. REVIEW OF SYSTEMS: Twelve system review was done. Positive findings per HPI. ALLERGIES: Sulfa drugs and IV dye. SOCIAL HISTORY: Lives with her children. All of them are alive and well. Does not drink or use drugs. She does smoke a half a pack a day. SURGICAL HISTORY: She has had appendectomy, cholecystectomy, , hysterectomy and tubal ligation. FAMILY HISTORY: No first-degree relatives with Crohn disease. REVIEW OF SYSTEMS: Notable for cramping in her legs and numbness in her hands, which made her think that she may have low potassium. She tends to have every now and again, and that is what brought her to the ER. LABORATORY WORK: White count 10,000, hemoglobin and hematocrit 13 and 40, platelets 375,000, normal differential. Sodium 130, potassium 2.1, BUN is 2, creatinine 0.8, glucose 120, calcium 8.7, magnesium 1.7. Lipase and amylase normal. Urinalysis, specific gravity is 1.008, 10-20 white cells. Flu screen was negative. CT abdomen showed left bronchopneumonia with mild hepatosplenomegaly and inflammatory changes in the right lower quadrant. PHYSICAL EXAMINATION: VITAL SIGNS: Blood pressure 108/73, pulse is 91, temperature is 98.8 degrees, respiratory rate is 20, 97% on room air. GENERAL: She is a middle-aged white female who is alert and oriented to person, place, and time, with normal mood and affect. She is in mild distress from her pain. HEENT: Head is normocephalic, atraumatic. Eyes, KAT, EOMI. Sclera anicteric. Not pale. ENT exam is grossly normal. Some cyanosis. NECK: Supple. No JVD or carotid bruit. No thyromegaly. No cervical or supraclavicular lymph nodes. CHEST: Slightly decreased entry in the left lung hanks with basilar crepitations. No wheezes. CARDIOVASCULAR: First and second heart sounds heard. No gallops, murmurs, rubs. Rhythm is regular. ABDOMEN: Slightly protuberant, soft, with tenderness in the epigastric right upper quadrant area, but more so in the right lower quadrant area with mild rebound. No guarding. Bowel sounds are hypoactive. RECTAL: Deferred at this time. EXTREMITIES: Patient has good distal pulse. Volume is regular, symmetrical. No edema, clubbing or cyanosis noted. NEUROLOGICAL: No gross focal deficits. SKIN: Intact no breakdown, lesions or erythema. MUSCULOSKELETAL: Exam is grossly normal. ASSESSMENT: At this time is: 1. Left bronchopneumonia. 2. Crohn's disease flare up. 3. Hypokalemia secondary to gastrointestinal losses. 4. Clinical dehydration. PLAN: Patient will be aggressively infused with crystalloids and electrolytes repleted accordingly. We will treat patient for symptoms for vomiting and send of stools to rule out any coexistent infection other than a Crohn's flare up. In the interim we will treat patient with antibiotics to cover both pneumonia and intra-abdominal enterocolitis. Will pick Levaquin and Flagyl to address both processes. We will treat patient symptomatically for pain. Consult GI to see patient. Monitor electrolytes closely. cc: MD Yuridia Gonsalez CRNP MTDD
[2019-03-19] MEDS: LEVAQUIN 750 MG/D5W 750 MG/150 ML IVPB IV SCH (02:18)
[2019-03-19] MEDS: DUONEB (A & A) INH SCH ×4 (03:59→21:17)
[2019-03-19] MEDS: POTASSIUM CHLORIDE 10 MEQ in LR 1,000 ML IV SCH ×2 (05:29→15:16)
[2019-03-19 07:58] LABS: BASO# 0.01 X1000 (0.0-0.2); BASO% 0.2 % (0.0-0.8); EOS# 0.02 X1000 (0.0-0.7); EOS% 0.3 % (0.0-10.0); HEMATOCRIT 33.8 % (37.0-47.0); HEMOGLOBIN 10.8 g/dL (12.0-16.0); LYMPH# 0.92 X1000 (1.2-3.4); LYMPH% 14.6 % (20.5-51.1); MCH 27.1 PG (27-31); MCV 84.9 FL (81-99); MONO% 4.8 % (1.7-9.3); MPV 10.5 FL (7.4-10.4); NEUT# 5.05 X1000 (1.4-6.5); NEUT% 80.1 % (42.2-75.2); PLT 297 X1000 (130-400); RBC 3.98 XMIL (4.2-5.4); RDW 14.4 % (11.5-14.5)
[2019-03-19 08:41] LABS: AGAP 16; BUN 4 mg/dL (8-22); CALCIUM 8.2 mg/dL (8.8-10.2); CHLORIDE 94 mmol/L (98-107); COSMO 276; CREATININE 0.7 mg/dL (0.5-0.9); ESTIMATED GFR > 60; GLUCOSE 122 mg/dL (70-104); MAGNESIUM 1.8 mg/dL (1.5-2.7); SODIUM 139 mmol/L (136-145); TCO2 29 mmol/L (25-35)
[2019-03-19 08:50] LABS: POTASSIUM 2.2 mmol/L (3.5-5.1)
[2019-03-19] MEDS ORDERED: BENTYL PO PRN (08:58)
[2019-03-19] MEDS: PATIENT'S OWN MED TOP SCH (09:00)
[2019-03-19] MEDS ORDERED: SOLU-MEDROL IV SCH (09:00)
[2019-03-19] MEDS ORDERED: ADDERALL PO SCH ×2 (09:00→14:00)
[2019-03-19] MEDS: CALTRATE 600 PO SCH ×2 (09:38→21:23)
[2019-03-19] MEDS: ZOLOFT PO SCH (09:38)
[2019-03-19] MEDS: FOLIC ACID PO SCH (09:39)
[2019-03-19] MEDS: ABILIFY PO SCH (09:40)
[2019-03-19] MEDS: ENTOCORT EC PO SCH (09:40)
[2019-03-19] MEDS: ICAR-C PO SCH ×2 (09:40→21:24)
[2019-03-19] MEDS: MUCINEX PO SCH ×2 (11:09→21:23)
[2019-03-19] MEDS: NORCO-10 PO PRN (12:44)
--- NOTE | 2019-03-19 13:21 | PROGRESS NOTE ---
DATE: 03/19/2019 SUBJECTIVE: This patient has been has been hospitalized due to pneumonia on the left side. As per the patient, she has been having fever since 03/13/2019 and the only day that she did not have a fever was yesterday. Also she has been having a diarrhea and lower abdominal pain especially at the left lower quadrant. Her potassium level has been low and I will replace it. OBJECTIVE: Vital Signs: Temperature 98.8. Pulse 67, respiratory rate 23, blood pressure 136/71, oxygen saturation 96 on room air. HEENT: Head normocephalic, no trauma. PERRLA. She has a little bit of rash at the level of her face. Neck: Supple. No JVD. Central trachea. Chest: Decreased breath sounds at the left base with rhonchi. Abdomen: Soft, lower abdominal tenderness, especially on the left lower quadrant. No signs of peritoneal irritation. Positive bowel sounds and actually they are hyperactive. Extremities: No clubbing, no cyanosis. Neurological: The patient is awake, alert. She is oriented x3. She seems to be anxious. ASSESSMENT AND PLAN: 1. Left lower lobe pneumonia, this patient has been placed on antibiotics which I will continue. I will continue with IV fluids as well. 2. Crohn disease flare up, I have placed this patient back on her medications. She received some steroids. I will continue with IV fluids and we have consulted Gastroenterology Department to evaluate this patient. 3. Hypokalemia secondary to gastrointestinal loss, agree with this. The potassium level is still low. I will give her some potassium in the IV fluids, but also she takes potassium 40 mEq twice a day at home, which I will continue. 4. Dehydration. She seems to be better and actually her kidney function is fine. 5. Hypochloremia with hyponatremia, the sodium level is better. I will put her on normal saline and potassium. 6. Anxiety and depression, likely situational, as per the patient she has been having this abdominal pain and Crohn's flare on and off for the past 3 years. We will continue with home medications. cc: Asael Santos MD
[2019-03-19] MEDS ORDERED: MORPHINE ONE (13:55)
--- NOTE | 2019-03-19 16:08 | GASTROENTEROLOGY CONSULTATION ---
DATE: 03/19/2019 REASON FOR CONSULT: Crohn disease flare up. HISTORY OF PRESENT ILLNESS: Ms. Goldberg is a 33-year-old female with a history of Crohn's disease. The patient presented to the ER last night with complaints of flu-like symptoms. She had fever, chills, shortness of breath, cough and chest pain. The patient also mentioned that she has been having nausea, vomiting, abdominal pain,diarrhea and chest pain since the 14 of March. She said that she had been out to eat at a [employer] restaurant and the next morning when she woke up she had a burning sensation in her chest and abdominal pain describing as aching, throbbing, cramping and rated it 7/10.. The patient has denied noticing any blood in her vomit or in her stools. The patient mentioned that yesterday she had flu-like symptoms and she wanted to get checked up, so she came to the ER She does have a history of Crohn disease and quite often has flare ups of the Crohn. She has been having Crohn disease from the age of 10. The patient was recently started on Stelara somewhere in January, had her first infusion at Dr. Wharton's office. She sees Dr. Bo White at [place] for her Crohn disease. Patient also mentioned that she has hemorrhoids and has bleeding episodes on and off. 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 The patient was seeing Dr. Washington and had a colonoscopy done on 03/20/2018, she had mild Crohn's colitis in the terminal ileum and colonic anastomotic region. Mild Crohn colitis found in the anus and the rectum. Internal and external hemorrhoids and stool was found. The biopsy of the lesions and anastomotic site in the colon showed that she had edematous mucosa with mild chronic inflammation and was suggested to have a repeat colonoscopy in 1 year. PAST MEDICAL HISTORY: Crohn disease, hemorrhoids. PAST SURGICAL HISTORY: Two C sections, hysterectomy, 2 ablations, adrenal gland tumor removed, and multiple colon resection. ALLERGIES: Sulfa, IV contrast, and Humira. FAMILY HISTORY: Her father has Crohn disease. SOCIAL HISTORY: The patient is single. She has 2 kids. She is a smoker. She has given up smoking since the 13 of March. The patient has occasional alcohol. Denied any illicit drug use. HOME MEDICATIONS: Adderall 20 mg p.o. twice a day, iron 1 tab twice a day, calcium carbonate 600 mg twice a day, vitamin B12 1000 mcg every 7 days, vitaminD3 79606 units every 7 days, multivitamin 1 tablet at bedtime, potassium chloride 40 mEq p.o. twice a day, folic acid 1 mg daily, hydrocodone/acetaminophen 10 mg/325 mg 1 tablet every 6 hours as needed, Bentyl 1 capsule 10 mg 3 times a day as needed, Seroquel 50 mg 1 tablet at bedtime, tacrolimus ointment 1 application twice a day, Abilify 10 mg daily 1 tablet, Zoloft 50 mg 1 tablet daily. REVIEW OF SYSTEMS: As per HPI. Otherwise, 12 point review of system is negative. PHYSICAL EXAMINATION: Vital signs: Temperature 98.8 degrees, pulse 66, respirations 20, blood pressure 103/67, oxygen saturation 96% on room air. Patient's weight is 223 pounds, BMI is 33.1 kg/m2. General: She is alert, oriented, and in no acute distress. HEENT: Pale conjunctivae. No icterus. PERRL. Neck: Supple. Lungs: Clear to auscultation in the anterior hanks. Cardiovascular: Regular rate and rhythm. Abdomen: Obese, soft. Tender in the upper quadrants and the lower quadrant. Hypoactive bowel sounds heard in all 4 quadrants. Extremities: No clubbing. No cyanosis. No edema. Pedal pulses 2+ present bilaterally. Neurologic: She is alert, oriented x3. Nonfocal. Cranial nerves 2-12 grossly intact. LABS: WBC is 6.30, RBCs 3.98, hemoglobin is 10.8, hematocrit is 33.8, platelet count is 297,000. Sodium 137, potassium 2.2, chloride 94, carbon dioxide 29, anion gap 16, BUN is 4, creatinine is 0.7, glucose is 122, calcium 8.2, magnesium is 1.8. Urinalysis yesterday, on 03/18 showed that she had trace of protein and WBC. The patient's abdomen and pelvis CT had shown bronchopneumonia at the left lower lobe. Mild hepatosplenomegaly. Inflammatory changes of the right lower quadrant. No bowel obstruction. No abscess. No free air. IMPRESSIONS AND PLAN: 1. Crohn's disease 2. Pneumonia 6. Dehydration. 7. Hypokalemia 8. Anemia 9. 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 Goldberg is a 33-year-old female with a history of Crohn disease. GI has been consulted for her Crohn's flare up. The patient is currently having nausea, vomiting, abdominal pain and diarrhea. Patient is on antiemetic Zofran for her nausea and Bently for abdominal cramps. The patient is receiving Levaquin for her pneumonia and Flagyl for her diarrhea. A stool study has been ordered. We will order a chest x-ray, PA and lateral for her pneumonia. We will start patient on Solu-Medrol 60 mg IV daily for her Crohn exacerbation. Her potassium today was 2.2. She is currently receiving potassium chloride 10 mEq at 75 mL/h in 1000 ml NS, IV potassium 20 meq @ 25 ml/hr two bags and she is receiving potassium p.o. 40 mEq BID per PCP. We will continue patient with her steroids and antibiotics. Awaiting the results of her stool studies. and continue patient with clear liquids. We will continue to monitor the patient and follow the plan of care per PCP. This plan was with Dr. Denton. Thank you for your consult. Please call us for any further questions. Dictated by JONNIE Farrar for Tank Denton MD Physician Attestation I have seen and examined the patient. I have discussed and reviewed the note by Kallie CRISTINA and agree with findings and plan as documented. In brief, Ms. China Goldberg is a 33 year old woman with h/o uncontrolled ileocolonic Crohn's s/p ileocecal resection, pelvic hydradenitis suppurativa, anti-TNF induced psoriasis, who presented with upper respiratory symptoms and fever found to have pneumonia. Hypokalemic. GI was consulted for uncontrolled Crohn's disease. She was recently started on Stelara about 8 weeks ago at [place]. She has chronic diarrhea 5-6 times a day with cramping lower abdominal pain without rectal bleeding. Her last colonoscopy was in the summer at [place]. She previously was intolerant of Humira, which was recently stopped early 2018. Prior smoker. Will rule out infectious diarrhea and continue steroids. Will follow with you. MTDD
[2019-03-19] MEDS: CENTRUM SILVER PO SCH (21:23)
[2019-03-19] MEDS: SEROQUEL PO SCH (21:23)
[2019-03-19] MEDS: KLOR-CON PO SCH (21:23)
[2019-03-19] MEDS: POTASSIUM CHLORIDE 10 MEQ in NS 1,000 ML IV SCH (21:30)
[2019-03-20] MEDS: FLAGYL 500 MG/NS 500 MG/100 ML IVPB IV SCH ×4 (00:31→18:57)
[2019-03-20] MEDS: POTASSIUM CHLORIDE 10 MEQ in NS 1,000 ML IV SCH ×2 (00:32→12:05)
[2019-03-20] MEDS: POTASSIUM CHLORIDE 20 MEQ/SWI 20 MEQ/100 ML IVPB IV SCH ×4 (00:32→15:09)
[2019-03-20] MEDS: PATIENT'S OWN MED TOP SCH ×3 (00:41→23:56)
[2019-03-20] MEDS: LEVAQUIN 750 MG/D5W 750 MG/150 ML IVPB IV SCH (01:33)
[2019-03-20] MEDS: LOVENOX SUBQ SCH ×2 (01:33→23:57)
[2019-03-20] MEDS: DUONEB (A & A) INH SCH ×2 (03:19→11:05)
[2019-03-20 05:24] LABS: BASO# 0.01 X1000 (0.0-0.2); BASO% 0.1 % (0.0-0.8); EOS# 0.05 X1000 (0.0-0.7); EOS% 0.7 % (0.0-10.0); HEMOGLOBIN 9.8 g/dL (12.0-16.0); IMM GRAN# 0.02 X1000 (0.0-0.04); IMM GRAN% 0.3 % (0.0-0.5); LYMPH# 2.25 X1000 (1.2-3.4); LYMPH% 30.9 % (20.5-51.1); MCH 27.6 PG (27-31); MCHC 31.6 g/dL (33-37); MCV 87.3 FL (81-99); MONO# 0.51 X1000 (0.11-0.59); MPV 10.3 FL (7.4-10.4); NEUT# 4.45 X1000 (1.4-6.5); PLT 293 X1000 (130-400); RBC 3.55 XMIL (4.2-5.4); RDW 14.9 % (11.5-14.5); WBC 7.29 X1000 (4.8-10.8)
[2019-03-20 06:31] LABS: ESTIMATED GFR > 60
[2019-03-20 06:39] LABS: AGAP 12; ALB/GLOB RATIO 0.9; ALKALINE PHOSPHATASE 80 U/L (32-104); BUN 3 mg/dL (8-22); CALCIUM 8.9 mg/dL (8.8-10.2); CHLORIDE 103 mmol/L (98-107); COSMO 285; CREATININE 0.6 mg/dL (0.5-0.9); GLUCOSE 90 mg/dL (70-104); GOT 7 U/L (10-30); GPT < 5 U/L (10-36); SODIUM 145 mmol/L (136-145); TCO2 30 mmol/L (25-35); TOTAL BILIRUBIN 0.19 mg/dL (0.20-1.00); TOTAL PROTEIN 6.2 g/dL (6.3-8.3)
[2019-03-20 07:07] LABS: POTASSIUM 2.5 mmol/L (3.5-5.1)
--- NOTE | 2019-03-20 07:49 | Diag Imaging Result Doc PS360 ---
EXAM: CHEST-2 VIEWS 03/20/2019 HISTORY: Pneumonia TECHNIQUE: AP upright and lateral sitting chest. COMMENT: There is alveolar opacification in the posterior left lower lobe. This was not present on 06/23/2017. IMPRESSION: Left lower lobe pneumonia. Advise follow-up until clear. Electronically signed by Abner Valle 03/20/2019 7:47 AM
[2019-03-20] MEDS: MORPHINE IV PRN ×4 (08:40→23:44)
[2019-03-20] MEDS: KLOR-CON PO SCH ×2 (08:41→23:55)
[2019-03-20] MEDS: MUCINEX PO SCH ×2 (08:41→23:56)
[2019-03-20] MEDS: SOLU-MEDROL IV SCH (08:41)
[2019-03-20] MEDS: ZOLOFT PO SCH (08:42)
[2019-03-20] MEDS: FOLIC ACID PO SCH (08:42)
[2019-03-20] MEDS: ICAR-C PO SCH ×2 (08:42→23:55)
[2019-03-20] MEDS: ENTOCORT EC PO SCH (08:42)
[2019-03-20] MEDS: CALTRATE 600 PO SCH ×2 (08:42→23:55)
[2019-03-20] MEDS: ABILIFY PO SCH (08:42)
[2019-03-20] MEDS: ADDERALL PO SCH ×2 (10:26→15:54)
--- NOTE | 2019-03-20 14:17 | GASTROENTEROLOGY PROGRESS NOTE ---
DATE: 03/20/2019 SUBJECTIVE: Ms. Goldberg is a 33-year-old female resting in bed. She complained of being nauseated and having generalized abdominal tenderness. OBJECTIVE: Vital Signs: Temperature 97.8 degrees, pulse is 73, respirations 18, blood pressure 120/65, oxygen saturation 97% on room air. Patient's weight is 223 pounds. BMI is 35.2 kg/m2. General: She is alert, oriented x3, and in no acute distress. HEENT: Pale conjunctivae. No icterus. PERRL. Neck: Supple. Lungs: Clear to auscultation. Cardiovascular: Regular rate and rhythm. Abdomen: Obese, soft. Tender in the upper and lower quadrants. Hypoactive bowel sounds heard in all 4 quadrants. Extremities: No clubbing. No cyanosis. No edema. Pedal pulses 2+ present bilaterally. Neurologic: Alert and oriented x3. LABORATORY DATA: WBC 7.29, RBC 3.55, hemoglobin 9.8, hematocrit is 31.0, platelet count is 293,000. Sodium 145, potassium is 2.5, chloride 103, carbon dioxide 30, anion gap is 12, BUN is 3, creatinine is 0.6, glucose is 90, calcium is 8.9. Total bilirubin is 0.19, AST is 7, ALT is less than 5, alkaline phosphatase is 80, albumin is 3.0. Chest x-ray today showed left lower lobe pneumonia. IMPRESSIONS AND PLAN: 1. Nausea and vomiting. 2. Abdominal pain. 3. Pneumonia. 4. Crohn disease. 5. Anxiety and depression. 6. Dehydration. 7. Hypokalemia. 8. Diarrhea. PLAN: Ms. Goldberg is a 33-year-old female with a history of Crohn disease. GI has been following her Crohn's flare up and diarrhea. The patient is currently c/o nausea, vomiting, and abdominal pain. We are waiting for the results of her stool studies. The patient is currently receiving antiemetics, Zofran for nausea and vomiting. She is on antibiotics, Flagyl and Levaquin. The patient's potassium today is 2.5. She is currently on potassium chloride 10 mEq normal saline 1000 mL at 75 mL/h. She is receiving potassium 40 mEq p.o. twice a day and also receiving potassium chloride 20 mEq at 50 mL IV fluids 2 bags per PCP. We will continue patient with steroid, Solu-Medrol 60 mg IV daily. Her diet has been advanced to a regular diet. We will continue to monitor the patient and follow the plan of care per PCP. This plan was discussed with Dr. Denton. Please call us for any further questions or concerns. Dictated by JONNIE Farrar for Tank Denton MD Physician Attestation I have seen and examined the patient. I have discussed and reviewed the note by Kallie CRISTINA and agree with findings and plan as documented. In brief, Ms. China Goldberg is a 33 year old woman with h/o uncontrolled ileocolonic Crohn's s/p ileocecal resection on Stelara, pelvic hydradenitis suppurativa, anti-TNF induced psoriasis who presented with upper respiratory symptoms and fever found to have pneumonia. GI was consulted for uncontrolled Crohn's disease. Her diarrhea is unchanged on IV steroids. Awaiting stool studies. Continue antibiotics, IVFs, and replete lytes. Will follow with you. ALEXANDROD
--- NOTE | 2019-03-20 17:55 | PROGRESS NOTE ---
DATE: 03/20/2019 SUBJECTIVE: As per the patient, she is feeling about the same compared with yesterday. It is reported just one liquid bowel movement today, but as per the patient, she has between 4 and 8 bowel movements, sometimes liquid and sometimes more loose than liquids. Vital signs are more stable. She is still coughing, but nothing is coming up too much. OBJECTIVE: Vital Signs: Temperature 97.8 degrees, pulse 73, respiratory rate 18, blood pressure 120/65, and oxygen saturation 97% on room air. HEENT: Head normocephalic. No trauma. PERRLA. Neck: Supple. No JVD. No masses. Central trachea. Lungs: Chest decreased breath sounds at the left base with rhonchi. Abdomen: Soft. Lower abdominal tenderness especially on the left lower quadrant. No signs of peritoneal irritation. Positive bowel sounds, and actually they are hyperactive a little bit. Extremities: No edema. No clubbing. No cyanosis. Neurological: The patient is awake. She is alert. She is oriented x3. A little bit anxious. LABORATORY: WBC 7.2, hemoglobin 9.8, hematocrit 31, and platelets 293,000. Sodium 145, potassium 2.5, chloride 103, bicarbonate 20, BUN 3, creatinine 0.6, glucose 90, calcium 8.9. ASSESSMENT AND PLAN: 1. Left lower lobe pneumonia. This patient has been placed on antibiotics. I will continue with that and continue with IV fluids as well. For me, she looks a bit better compared with yesterday even though she said that she feels about the same. 2. Crohn's disease flare up, I have placed this patient back on her medication. Gastroenterology Department following this patient. 3. Hypokalemia secondary to gastrointestinal loss. Potassium level is still low. She has been getting potassium IV and also p.o. I will continue with same management. This is not the first time that this patient has been having problem with potassium, and actually she states that once the potassium is low it takes time to recover that. 4. Dehydration resolved. 5. Hypochloremia with hyponatremia resolved. Continue with IV fluids. 6. Anxiety and depression. Continue with same management. 7. 1 out of 2 coagulase-negative Staphylococcus bacteremia. This is likely a contamination. No treatment for now. cc: Asael Santos MD
[2019-03-20] MEDS: ZOFRAN IV PRN (23:45)
[2019-03-20] MEDS: NORCO-10 PO PRN (23:45)
[2019-03-20] MEDS: CENTRUM SILVER PO SCH (23:55)
[2019-03-20] MEDS: SEROQUEL PO SCH (23:56)
[2019-03-21] MEDS: LOVENOX SUBQ SCH (00:44)
[2019-03-21] MEDS: FLAGYL 500 MG/NS 500 MG/100 ML IVPB IV SCH ×5 (01:51→23:30)
[2019-03-21] MEDS: LEVAQUIN 750 MG/D5W 750 MG/150 ML IVPB IV SCH ×2 (02:39→03:04)
[2019-03-21] MEDS: POTASSIUM CHLORIDE 10 MEQ in NS 1,000 ML IV SCH ×2 (05:44→15:35)
[2019-03-21 07:26] LABS: BASO# 0.02 X1000 (0.0-0.2); BASO% 0.2 % (0.0-0.8); EOS# 0.07 X1000 (0.0-0.7); EOS% 0.9 % (0.0-10.0); HEMATOCRIT 30.7 % (37.0-47.0); HEMOGLOBIN 9.3 g/dL (12.0-16.0); IMM GRAN# 0.03 X1000 (0.0-0.04); IMM GRAN% 0.4 % (0.0-0.5); LYMPH# 3.04 X1000 (1.2-3.4); LYMPH% 37.9 % (20.5-51.1); MCHC 30.3 g/dL (33-37); MCV 89.2 FL (81-99); MONO# 0.64 X1000 (0.11-0.59); MPV 10.4 FL (7.4-10.4); NEUT# 4.23 X1000 (1.4-6.5); NEUT% 52.6 % (42.2-75.2); PLT 359 X1000 (130-400); RBC 3.44 XMIL (4.2-5.4); RDW 15.6 % (11.5-14.5); WBC 8.03 X1000 (4.8-10.8)
[2019-03-21 08:06] LABS: POTASSIUM 2.5 mmol/L (3.5-5.1); SODIUM 143 mmol/L (136-145)
[2019-03-21 08:07] LABS: AGAP 13; BUN 5 mg/dL (8-22); CALCIUM 8.2 mg/dL (8.8-10.2); CHLORIDE 101 mmol/L (98-107); COSMO 281; CREATININE 0.6 mg/dL (0.5-0.9); ESTIMATED GFR > 60; GLUCOSE 81 mg/dL (70-104); TCO2 29 mmol/L (25-35)
[2019-03-21 09:02] LABS: LYMPHS 41 % (21-51); MONO 2 % (1-9); MYELOCYTES 2 %; SEGS 55 % (42-75)
[2019-03-21] MEDS: ADDERALL PO SCH ×2 (10:31→15:35)
[2019-03-21] MEDS: PATIENT'S OWN MED TOP SCH ×2 (10:33→21:32)
[2019-03-21] MEDS: SOLU-MEDROL IV SCH (10:37)
[2019-03-21] MEDS: KLOR-CON PO SCH ×2 (10:38→21:31)
[2019-03-21] MEDS: MORPHINE IV PRN ×3 (10:38→21:22)
[2019-03-21] MEDS: ABILIFY PO SCH (10:39)
[2019-03-21] MEDS: MUCINEX PO SCH ×2 (10:39→21:31)
[2019-03-21] MEDS: ENTOCORT EC PO SCH (10:39)
[2019-03-21] MEDS: ICAR-C PO SCH ×2 (10:39→21:31)
[2019-03-21] MEDS: CALTRATE 600 PO SCH ×2 (10:39→21:31)
[2019-03-21] MEDS: ZOFRAN IV PRN (10:39)
[2019-03-21] MEDS: ZOLOFT PO SCH (10:40)
[2019-03-21] MEDS: POTASSIUM CHLORIDE 20 MEQ/SWI 20 MEQ/100 ML IVPB IV SCH ×2 (10:40→14:04)
[2019-03-21] MEDS: FOLIC ACID PO SCH (10:41)
--- NOTE | 2019-03-21 11:08 | GASTROENTEROLOGY PROGRESS NOTE ---
DATE: 03/21/2019 SUBJECTIVE: Ms. Goldberg is a 33-year-old female sitting in bed and having her breakfast. Patient has denied nausea or any abdominal pain today. OBJECTIVE: Vital Signs: Temperature 97.7 degrees, pulse is 52, respirations 18, blood pressure 117/70, oxygen saturation 95% on room air. The patient's weight is 223 pounds. BMI is 35.2 kg/m2. General: She is alert, oriented x3, obese, and in no acute distress. HEENT: Pale conjunctivae. No icterus. PERRL. Neck: Supple. Lungs: Clear to auscultation. Cardiovascular: Patient is bradycardic. Abdomen: Obese, soft, nontender. Hypoactive bowel sounds heard in all 4 quadrants. Extremities: No clubbing, no cyanosis, no edema. Pedal pulses 2+ present bilaterally. Neurologic: She is alert, oriented x3. Laboratory Data: WBCs are 8.03, RBCs 3.44, hemoglobin is 9.3, hematocrit is 30.7, platelet count is 359,000. Sodium is 143, potassium is 2.5, chloride is 101, carbon dioxide is 29, anion gap is 13, BUN is 5, creatinine is 6, glucose is 81, calcium is 8.2. The patient's chest x-ray yesterday showed left lower lobe pneumonia. IMPRESSION AND PLAN: Crohn's disease on Stelara per GI at [place]-first dose was given few weeks ago by Dr Wharton. Pelvic hidradenitis suppurativa Diarrhea Nausea and Vomiting Pneumonia Anemia PLAN: Ms. Goldberg is a 33-year-old, female with a history of Crohn's disease. GI is following her for her Crohn's flare-up and diarrhea. The patient today has denied any nausea, vomiting, or abdominal pain. She said she was able to tolerate her diet fairly well. Her diarrhea is also improving. Patient had just one bowel movement today. We have ordered stool studies for her and the stools are still not collected. Awaiting the stool study results. The patient is currently receiving Flagyl and Levaquin. She is on antiemetic, Zofran. She is on Icar and multivitamins for anemia. For her Crohn's flare-up, the patient is on Solu- Medrol 60 mg daily. The patient's hypokalemia is managed by IV potassium chloride 10 mEq and 75 mL of normal saline, 1000 mL. She is also receiving p.o. potassium 40 mEq twice a day and patient is also receiving a 1 time dose of 2 bags of potassium chloride 20 mEq at 50 mL per PCP. We are awaiting the results of her stool studies. We will continue to monitor the patient and follow the plan of care per PCP. This plan was discussed with Dr. Washington. Please call us for any further questions or concerns. Dictated by JONNIE Farrar for Yousif Washington MD cc: Yousif Washington MD I have seen and examined the patient myself and I agree with the above plan of care. Please call us with any further questions. MTDD
[2019-03-21] MEDS ORDERED: NS 500 ML ONE (12:03)
[2019-03-21] MEDS: NORCO-10 PO PRN (12:51)
--- NOTE | 2019-03-21 13:28 | PROGRESS NOTE ---
DATE: 03/21/2019 SUBJECTIVE: No big changes compared with yesterday. This patient is still feeling about the same. She has been coughing more and she seems and the cough seems to be more loose, I will continue with same management. I will continue replacing the potassium. I will ask for a new potassium today at 6 p.m., she is getting potassium through her IV fluids, also p.o. and also as needed and also she will get as needed IV potassium. OBJECTIVE: Vital Signs: Temperature 97.7 degrees, pulse 52, respiratory rate 18, blood pressure 117/70, oxygen saturation 95% on room air. HEENT: Head normocephalic, no trauma PERRLA. Neck: Supple. No JVD. No masses. Central trachea. Chest: Decreased breath sounds at the left base with rhonchi. Abdomen: Soft, lower abdominal tenderness, especially on the left lower quadrant. No signs of peritoneal irritation. Positive bowel sounds. Actually today seems to be a little bit hyperactive. Extremities: No clubbing, no cyanosis. Neurological: The patient is awake, she is alert, she is oriented x3. She does not look that anxious today. LABORATORY DATA: WBC hemoglobin 9.3, hematocrit 30.7, platelets 359,000. Sodium 143, potassium 2.5, chloride 101, bicarbonate 23, BUN 5, creatinine 0.6 glucose 81, calcium 8.2. ASSESSMENT AND PLAN: 1. Left lower lobe pneumonia continue with antibiotics. White blood cell count is normal. She has not been having fever or chills, so we will continue with the same treatment. 2. Crohn disease flare-up, continue with her home medications. Gastroenterology Department following this patient. They are also taking care of her treatment. 3. Hypokalemia secondary to gastrointestinal loss. Potassium level is still low even though she has been getting a good amount of potassium by mouth and IV, we will continue to replace. 4. Dehydration. Resolved. 5. Hypochloremia with hyponatremia, resolved. Continue with IV fluids for now. 6. Anxiety and depression. Continue with same management, home medications. 7. 1 out 2 coagulase-negative Staphylococcus bacteremia, likely contamination. No treatment for now. cc: Asael Santos MD
[2019-03-21] MEDS: CENTRUM SILVER PO SCH (21:31)
[2019-03-21] MEDS: SEROQUEL PO SCH (21:31)
[2019-03-22] MEDS: LOVENOX SUBQ SCH (00:33)
[2019-03-22] MEDS: LEVAQUIN 750 MG/D5W 750 MG/150 ML IVPB IV SCH ×2 (00:53→23:50)
[2019-03-22] MEDS: POTASSIUM CHLORIDE 10 MEQ in NS 1,000 ML IV SCH ×2 (00:57→16:37)
[2019-03-22] MEDS: MORPHINE IV PRN ×5 (03:50→23:54)
[2019-03-22] MEDS: FLAGYL 500 MG/NS 500 MG/100 ML IVPB IV SCH (04:45)
[2019-03-22 07:54] LABS: AGAP 13; BUN 6 mg/dL (8-22); CALCIUM 8.2 mg/dL (8.8-10.2); CHLORIDE 101 mmol/L (98-107); COSMO 276; CREATININE 0.7 mg/dL (0.5-0.9); ESTIMATED GFR > 60; GLUCOSE 78 mg/dL (70-104); POTASSIUM 2.7 mmol/L (3.5-5.1); SODIUM 140 mmol/L (136-145); TCO2 26 mmol/L (25-35)
[2019-03-22 08:07] LABS: BASO# 0.11 X1000 (0.0-0.2); BASO% 1.4 % (0.0-0.8); EOS# 0.03 X1000 (0.0-0.7); EOS% 0.4 % (0.0-10.0); HEMOGLOBIN 9.4 g/dL (12.0-16.0); IMM GRAN# 0.06 X1000 (0.0-0.04); IMM GRAN% 0.8 % (0.0-0.5); LYMPH# 3.08 X1000 (1.2-3.4); LYMPH% 39.9 % (20.5-51.1); MCH 29.4 PG (27-31); MCHC 31.3 g/dL (33-37); MCV 93.8 FL (81-99); MONO# 0.53 X1000 (0.11-0.59); MONO% 6.9 % (1.7-9.3); MPV 10.5 FL (7.4-10.4); NEUT# 3.91 X1000 (1.4-6.5); NEUT% 50.6 % (42.2-75.2); PLT 408 X1000 (130-400); RDW 15.9 % (11.5-14.5); WBC 7.72 X1000 (4.8-10.8)
[2019-03-22] MEDS: ADDERALL PO SCH ×2 (08:37→16:38)
--- NOTE | 2019-03-22 09:01 | Diag Imaging Result Doc PS360 ---
EXAM: CHEST-2 VIEWS 03/22/2019 HISTORY: hypoxia TECHNIQUE: PA and lateral chest COMMENT: There is alveolar opacity in the posterior left lower lobe. This was also present on 03/20/2019. There is slight opacity in the lateral costophrenic sulcus of the right lower lobe. IMPRESSION: Left lower lobe pneumonia. Electronically signed by Abner Valle 03/22/2019 8:58 AM
[2019-03-22] MEDS: MUCINEX PO SCH ×2 (09:12→20:12)
[2019-03-22] MEDS: ICAR-C PO SCH ×2 (09:12→20:11)
[2019-03-22] MEDS: KLOR-CON PO SCH ×2 (09:12→20:11)
[2019-03-22] MEDS: ABILIFY PO SCH (09:12)
[2019-03-22] MEDS: SOLU-MEDROL IV SCH (09:12)
[2019-03-22] MEDS: ZOLOFT PO SCH (09:12)
[2019-03-22] MEDS: FOLIC ACID PO SCH (09:12)
[2019-03-22] MEDS: CALTRATE 600 PO SCH ×2 (09:12→20:11)
[2019-03-22] MEDS: ZOFRAN IV PRN ×3 (09:33→18:45)
--- NOTE | 2019-03-22 11:41 | GASTROENTEROLOGY PROGRESS NOTE ---
DATE: 03/22/2019 HISTORY: Ms. Goldberg is a 33-year-old female, sitting in bed. The patient was frustrated because she was not getting any rest due to the patient next to her bedside was making too much noise. The patient has denied any nausea and vomiting today. OBJECTIVE: Vital Signs: Temperature 97.7 degrees, pulse 49, respirations 14, blood pressure 122/69, oxygen saturation 95% on room air. The patient's weight is 223 pounds. BMI is 35.2 kg/m2. General: She is alert, oriented x3, obese, and in no acute distress. HEENT: Pale conjunctivae. No icterus. PERRL. Neck: Supple. Lungs: Clear to auscultation. Cardiovascular: Patient is bradycardic. Abdomen: Obese, soft, mildly tender. Hypoactive bowel sounds heard in all 4 quadrants. Extremities: No clubbing, no cyanosis, no edema. Pedal pulses 2+ present bilaterally. Neurologic: She is alert, oriented x3. LABORATORY DATA: WBCs of 7.72, RBC 3.20, hemoglobin 9.4, hematocrit is 30.0, platelet count is 408,000. Sodium 140, potassium 2.7, chloride 101, carbon dioxide 26, anion gap 13, BUN 6, creatinine 0.7, glucose 78, calcium 8.2. The patient's chest x-ray has shown left lower lobe pneumonia. IMPRESSION AND PLAN: Nausea and vomiting Abdominal pain Pneumonia Crohn's disease Anxiety and Depression Hypokalemia Diarrhea PLAN: Ms. Goldberg is a 33-year-old female with a history of Crohn's disease. GI has been following her for a Crohn's flare up and diarrhea. Patient has denied having any nausea and vomiting, and was able to tolerated her breakfast well. Patient c/o of generalized abdominal tenderness. We are still awaiting on her stool studies. The patient is receiving Levaquin for her pneumonia. She is on Solu-Medrol 60 mg IV daily for her Crohn's flare up. She is receiving Zofran antiemetic for her nausea and vomiting, which is currently under control. The patient's potassium today was 2.7. She is receiving IV potassium and p.o. potassium per PCP. We will continue to monitor the patient and follow the plan of care per PCP. This plan was discussed with Dr. Denton. Please call us for any further questions or concerns. Dictated by JONNIE Farrar for Tank Denton MD [facility]
[2019-03-22] MEDS: POTASSIUM CHLORIDE 20 MEQ/SWI 20 MEQ/100 ML IVPB IV SCH ×2 (14:30→16:38)
[2019-03-22] MEDS: PATIENT'S OWN MED TOP SCH ×2 (16:37→20:15)
--- NOTE | 2019-03-22 17:08 | PROGRESS NOTE ---
DATE: 03/22/2019 SUBJECTIVE: The patient seems to be just a little bit better, but she is still complaining of cough. X-ray showed left lower lobe pneumonia. Her potassium seems to be a little bit better but still low at 2.7. I will reorder a magnesium level for tomorrow morning. I do believe this patient seems to be more stable and probably can be discharged during the weekend. Her vital signs are stable and she is not requiring oxygen. She is complaining of some abdominal pain as well. Since this patient has been getting medications for her Crohn disease probably, also she is a little bit immunosuppressed. On top of that she is getting antibiotics so I will add Augmentin to her levofloxacin. OBJECTIVE: Vital Signs: Temperature 97.9 degrees, pulse 53 respiratory rate 15, blood pressure 127/76, oxygen saturation 97% on room air. HEENT: Head normocephalic, no trauma. PERRLA. Neck: Supple. No JVD. No masses. Central trachea. Chest: Decreased breath sounds mostly at the bases with left rhonchi and crepitus. Abdomen: Soft. She has some generalized tenderness mostly at the level of the lower abdomen. Extremities: No edema, no clubbing, no cyanosis. Neurological: The patient is awake alert she is oriented x3. LABORATORY: WBC 7.7, hemoglobin 9.4, hematocrit 30.0, platelet 408,000. Sodium 140, potassium 2.7, chloride 101, bicarbonate 26, BUN 6, creatinine 0.7, glucose 78, calcium 8.2. ASSESSMENT AND PLAN: 1. Left lower lobe pneumonia, continue with antibiotics. I will add Augmentin to her medications because she has been getting treatment for her Crohn's disease and also she is getting a steroid, so I will try to increase her coverage. 2. Crohn disease flare up. Continue with the same management. Gastroenterology Department following this patient. 3. Hypokalemia secondary to gastrointestinal loss. Potassium level seems to be a little bit better today. I will replace it, though, continue with same management. I will check the magnesium level in the morning. 4. Dehydration, resolved. 5. Hypochloremia and hyponatremia resolved. Probably she was just dehydrated. 6. Anxiety and depression. Continue with same management. Continue home medications. 7. 1 out of 2 coagulase-negative Staphylococcus bacteremia, likely a contamination. No treatment for now. cc: Asael Santos MD
[2019-03-22] MEDS: SEROQUEL PO SCH (20:10)
[2019-03-22] MEDS: AUGMENTIN PO SCH (20:11)
[2019-03-22] MEDS: CENTRUM SILVER PO SCH (20:12)
[2019-03-23] MEDS: POTASSIUM CHLORIDE 10 MEQ in NS 1,000 ML IV SCH (05:27)
[2019-03-23 08:22] LABS: AGAP 14; BUN 7 mg/dL (8-22); CALCIUM 8.3 mg/dL (8.8-10.2); CHLORIDE 102 mmol/L (98-107); COSMO 282; CREATININE 0.8 mg/dL (0.5-0.9); ESTIMATED GFR > 60; GLUCOSE 77 mg/dL (70-104); POTASSIUM 2.8 mmol/L (3.5-5.1); SODIUM 143 mmol/L (136-145); TCO2 27 mmol/L (25-35)
[2019-03-23] MEDS: SOLU-MEDROL IV SCH (08:48)
[2019-03-23] MEDS: ABILIFY PO SCH (08:48)
[2019-03-23] MEDS: CALTRATE 600 PO SCH (08:48)
[2019-03-23] MEDS: ZOFRAN IV PRN (08:48)
[2019-03-23] MEDS: ADDERALL PO SCH (08:49)
[2019-03-23] MEDS: MUCINEX PO SCH (08:49)
[2019-03-23] MEDS: KLOR-CON PO SCH (08:49)
[2019-03-23] MEDS: AUGMENTIN PO SCH (08:49)
[2019-03-23] MEDS: ZOLOFT PO SCH (08:49)
[2019-03-23] MEDS: FOLIC ACID PO SCH (08:49)
[2019-03-23] MEDS: LOVENOX SUBQ SCH ×2 (08:49→08:56)
[2019-03-23] MEDS: ICAR-C PO SCH (08:49)
[2019-03-23] MEDS: MORPHINE IV PRN (08:50)
[2019-03-23] MEDS: PATIENT'S OWN MED TOP SCH (08:50)
[2019-03-23] MEDS ORDERED: MAGNESIUM SULFATE 2 GM/S.W.I. 2 GM/50 ML IVPB IV ONE (09:48)
[2019-03-23] MEDS ORDERED: POTASSIUM CHLORIDE 20 MEQ/SWI 20 MEQ/100 ML IVPB IV SCH (10:00)
[2019-03-23] MEDS ORDERED: NS 1,000 ML ONE (11:20)
[2019-03-23] MEDS ORDERED: NS 250 ML ONE (12:32)
[2019-03-23 14:29] VITALS: BP 145/88
--- NOTE | 2019-03-24 09:10 | DISCHARGE SUMMARY ---
ADMISSION DATE: 03/18/2019 DISCHARGE DATE: 03/23/2019 DISCHARGE DIAGNOSES: 1. Left lower lobe pneumonia. 2. Crohn disease flare up. 3. Hypokalemia secondary to gastrointestinal loss. 4. Borderline low hypomagnesemia. 5. Dehydration, resolved. 6. Hypochloremia and hyponatremia, resolved. 7. One out of two coagulase-negative Staph bacteremia, likely contamination. No treatment. PROCEDURES PERFORMED: 1. Abdomen and pelvis CT scan dated 03/15/2019. Impression: Bronchopneumonia at left lower lobe, mild hepatosplenomegaly, apparent inflammatory changes in the right lower quadrant in the vicinity of prior surgery. This may relate to Crohn's enterocolitis. No bowel obstruction, no abscess, no free air. 2. Chest x-ray dated 03/20/2019. Impression: Left lower lobe pneumonia. 3. Chest x-ray dated 03/22/2019. Impression: Left lower lobe pneumonia. HOSPITAL COURSE: A 33-year-old female with a past medical history of Crohn's disease, reported that for 5 days, she went out with her family to eat at a [employer] restaurant and the next morning, she woke up having burning, pressure-like chest pain coupled with intense nausea and then subsequently she started having vomiting and diarrhea. She was admitted on 03/18/2019. She denies any hematemesis, coffee-ground, melenic stools or hematochezia. She has a long-standing history of right lower quadrant abdominal pain which she states has gotten worse since she developed a mild productive cough the following day. The cough was productive of greenish sputum, and she said she has been having intermittent subjective fever and chills. She also has been having some progressive shortness of breath with exertion. No PND or orthopnea. No leg swelling or extremity redness or pain. She is having some chest pain when she coughs. She describes the pain as being several razor blades in her chest. Also, she has been having her usual diarrhea that is not affected by meals. No genitourinary complaints. No neurological complaints. No rash. Denies any close contact with the anybody with respiratory or GI symptoms. CT scan showed left bronchopneumonia. She was admitted also due to possible Crohn's disease flare up. She did have some electrolyte abnormality. One of them is kind of chronic, which is the hyponatremia for which she takes potassium twice a day around 40 mEq. As per the patient, usually when the potassium goes down, it takes some time to recover that. She received a large amount of potassium during this hospitalization. Also she was hyponatremic and hypochloremic. She has been receiving treatment with antibiotics since day #1, and Gastroenterology Department also evaluated this patient and they placed this patient on steroids as well. This patient has been feeling better compared with admission. I do feel that the pneumonia is getting better as well. She can continue treatment at home with antibiotics and she needs to follow up with her primary care doctor this week. Everything has been discussed with the patient. Vital signs are stable. She never used oxygen during this hospitalization and there is no fever documented either. PHYSICAL EXAMINATION: Vital Signs: Temperature 98 degrees, pulse 58, respiratory rate 18, blood pressure 138/78, oxygen saturation 94% on room air. HEENT: Head normocephalic. No trauma. PERRLA. Neck: Supple. No JVD. No masses. Central trachea. Chest: She does have some crepitus and mild rhonchi at the left base. Abdomen: Soft. She has some generalized tenderness mostly at the level of the lower abdomen, probably the right side. Extremities: No edema, no clubbing, no cyanosis. Neurologic: The patient is awake, alert, and oriented x3. No focal deficits. LABORATORY DATA: Sodium 143, potassium 2.8, chloride 102, bicarbonate 27, BUN 7, creatinine 0.8, glucose 77, calcium 8.3, and magnesium 1.6. DISCHARGE MEDICATIONS: 1. Augmentin 875 mg p.o. q.12 hours. 2. [*]1 tablet p.o. daily 10 mg. 3. Budesonide 9 mg p.o. daily. 4. Calcium carbonate 300 mg p.o. b.i.d. 5. Vitamin B12 1000 mcg every 7 days. 6. Adderall 20 mg tablet p.o. b.i.d. 7. Bentyl 1 capsule p.o. t.i.d. as needed. 8. Vitamin D 5000 units p.o. q.7 days. 9. Folic acid 1 mg p.o. daily. 10. Mucinex 600 mg p.o. b.i.d. 11. Bourg 10 one tablet p.o. q.6 hours as needed for pain. 12. Icar C 1 tab p.o. b.i.d. 13. Levofloxacin 750 mg p.o. daily for 2 more days. 14. Centrum Silver 1 tablet p.o. at bedtime. 15. MiraLAX 17 g p.o. b.i.d. as needed for constipation. 16. Potassium chloride 40 mEq p.o. b.i.d. 17. Seroquel 1 tablet p.o. at bedtime 50 mg. 18. Sertraline 50 mg p.o. daily. 19. Tacrolimus 30 mg topical b.i.d., even though the patient states that she is no longer taking this for psoriatic rash. Time discharging this patient 35 minutes. cc: Asael Santos MD
== END 2019-03-23 16:27 | disposition home or self-care (01) | DRG 194 ==
LOC: ED 20:04 → EDIPHOLD 20:05 → SUATTDRO 20:05 → 3N 03-20 12:51
PROVIDERS: ATTEND Internal Medicine